=== PATIENT | male | born 1940 | race Caucasian/White ===

== ENCOUNTER → 2017-03-13 | Outpatient (CLI) | payer BC ==
[2014-09-15 07:48] VITALS: BP 150/58
[~2017-03-13] MED LIST: ASPI81TA50 PO; Acetaminophen With Codeine PO; CLOP75TA57 PO; FLUT1DIS3 IH; IPRA0.2S5 NEB; IPRA3AMP; MAGN400O7 PO; OMEP40CA5 PO; PROAIR HFA8.5 GM IH; [UNRECOGNIZED DRUG - CODE]
--- NOTE | 2017-03-13 12:39 | KCIC ---
CT MAXILLOFACIAL WO CONTRAST dated 03/13/2017 10:30 AM Indication: Nasal polyps, drainage, scratchy throat for a couple of years Comparison: None Technique: CT imaging was performed of the[maxillofacial region], multiplanar reconstruction images submitted. One or more of the following individualized dose reduction techniques were utilized for this examination: 1. Automated exposure control 2. Adjustment of the mA and/or kV according to patient size 3. Use of iterative reconstruction technique. Findings: There are no air-fluid levels of the paranasal sinuses. There is patchy ethmoid air cell mucosal thickening, more confluent mucosal thickening and partial opacification of posterior left ethmoid air cell. There is mild mucosal thickening at the floor of the right maxillary sinus, greatest CC thickness up to 5 mm. There may be an associated mucous retention cyst or small polyp. Ostiomeatal units are patent bilaterally. Mastoid air cells are aerated on the right, some minimal density on the left. IMPRESSION: 1. Paranasal sinuses are mostly aerated, patchy minimal ethmoid air cell mucosal thickening and also near the floor of the right maxillary sinus, possibly small mucous retention cyst or polyp near floor of the right maxillary sinus. Electronically signed by: Duke Simms MD (03/13/2017 12:36 PM) [facility]
== END | disposition home or self-care (01) ==
LOC: KCIC CT 10:08
PROVIDERS: ATTEND Otolaryngology
DX: J33.9 Nasal polyp, unspecified (principal); R09.89 Other specified symptoms and signs involving the circulatory and respiratory systems
CPT/HCPCS: 70486

== ENCOUNTER → 2017-06-28 | Outpatient (CLI) | payer BC ==
[2014-09-15 07:48] VITALS: BP 150/58
--- NOTE | 2017-06-28 14:27 | KCIC ---
Three-view left shoulder study Clinical indications: Left shoulder pain for one year. No known injury. FINDINGS: No acute fracture or dislocation or osteolytic process is seen. 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 There is spurring of the inferior edge of the acromial process. These findings may impinge the acromiohumeral space resulting in rotator cuff disease. There is mild chronic erosive change of the lateral aspect of the left humeral head which may be secondary to chronic impingement of the acromiohumeral space. In impression: No acute osseous abnormality. See discussion above. Electronically signed by: Stu Hale MD (06/28/2017 2:23 PM) [facility]
== END | disposition home or self-care (01) ==
LOC: KCIC 13:24
PROVIDERS: ATTEND Family Medicine
DX: M19.012 Primary osteoarthritis, left shoulder (principal)
CPT/HCPCS: 73030

== ENCOUNTER → 2017-11-02 | Outpatient (CLI) | payer BC | END | disposition home or self-care (01) | LOC: KCIC MRI 11:31 | DX: M51.26 Other intervertebral disc displacement, lumbar region (principal); M48.07 Spinal stenosis, lumbosacral region; M41.86 Other forms of scoliosis, lumbar region | CPT/HCPCS: 72148 ==

== ENCOUNTER → 2017-11-16 | Outpatient (CLI) | payer BC ==
[~2017-11-16] MED LIST changes: -ASPI81TA50 PO; -Acetaminophen With Codeine PO; -CLOP75TA57 PO; -FLUT1DIS3 IH; +IOHEXOL 180 MG/ML 10 ML VIAL.; -IPRA0.2S5 NEB; -IPRA3AMP; -MAGN400O7 PO; -OMEP40CA5 PO; -PROAIR HFA8.5 GM IH; -[UNRECOGNIZED DRUG - CODE]; +methylPREDNISolone ACETATE 40 MG/ML VIAL.; +methylPREDNISolone ACETATE 80 MG/ML VIAL.
== END | disposition home or self-care (01) ==
LOC: PNCL 10:11
DX: M51.16 Intervertebral disc disorders with radiculopathy, lumbar region (principal); M48.061 Spinal stenosis, lumbar region without neurogenic claudication; M96.1 Postlaminectomy syndrome, not elsewhere classified; I10 Essential (primary) hypertension; J44.9 Chronic obstructive pulmonary disease, unspecified; N40.0 Benign prostatic hyperplasia without lower urinary tract symptoms; M19.90 Unspecified osteoarthritis, unspecified site; Z87.891 Personal history of nicotine dependence; Z90.49 Acquired absence of other specified parts of digestive tract; Z98.890 Other specified postprocedural states; Z88.2 Allergy status to sulfonamides; Z88.6 Allergy status to analgesic agent; Z79.82 Long term (current) use of aspirin; Z79.899 Other long term (current) drug therapy; K21.9 Gastro-esophageal reflux disease without esophagitis; Z98.52 Vasectomy status; M81.0 Age-related osteoporosis without current pathological fracture; Z82.5 Family history of asthma and other chronic lower respiratory diseases
CPT/HCPCS: 62323; J1030; J1040; Q9965

== ENCOUNTER → 2017-12-04 | Outpatient (CLI) | payer BC | END | disposition home or self-care (01) | LOC: KCIC US 15:11 | DX: N28.1 Cyst of kidney, acquired (principal); N32.9 Bladder disorder, unspecified | CPT/HCPCS: 76770 ==

== ENCOUNTER → 2017-12-13 | Outpatient (CLI) | payer BC ==
[2017-12-13 13:03] LABS: ADD MAN DIFF? NO
[2017-12-13 13:16] LABS: BASO % 1 % (0-3); EOS # 0.1 x10^3/uL (0.0-0.7); EOS % 1 % (0-3); HEMATOCRIT 44.3 % (39.0-53.0); HEMOGLOBIN 15.3 g/dL (13.0-17.5); LYMPH # 1.2 x10^3/uL (1.0-4.8); LYMPH % 17 % (24-48); MEAN CORPUSCULAR HEMOGLOBIN 32 pg (25-35); MEAN CORPUSCULAR HGB CONC 35 g/dL (31-37); MEAN CORPUSCULAR VOLUME 94 fL (79-100); MONO # 0.7 x10^3/uL (0.0-1.1); MONO % 9 % (0-9); NEUT # 5.2 x10^3uL (1.8-7.7); NEUT % 72 % (31-73); PLATELET COUNT 305 x10^3/uL (140-400); RED BLOOD COUNT 4.73 x10^6/uL (4.30-5.70); RED CELL DISTRIBUTION WIDTH 13.8 % (11.5-14.5); WHITE BLOOD COUNT 7.2 x10^3/uL (4.0-11.0)
[2017-12-13 13:22] LABS: ALBUMIN 3.8 g/dL (3.4-5.0); ALBUMIN/GLOBULIN RATIO 1.1 (1.0-1.7); ALK PHOS 109 U/L (46-116); ALT (SGPT) 21 U/L (16-63); ANION GAP 6 (6-14); AST (SGOT) 20 U/L (15-37); BLOOD UREA NITROGEN 11 mg/dL (8-26); BUN/CREATININE RATIO 14 (6-20); CALCIUM 9.1 mg/dL (8.5-10.1); CARBON DIOXIDE 32 mmol/L (21-32); CHLORIDE 97 mmol/L (98-107); CREATININE 0.8 mg/dL (0.7-1.3); GLUCOSE 119 mg/dL (70-99); SODIUM 135 mmol/L (136-145); TOTAL BILIRUBIN 0.8 mg/dL (0.2-1.0); TOTAL PROTEIN 7.4 g/dL (6.4-8.2)
== END | disposition home or self-care (01) ==
LOC: RAD 12:11
DX: R93.41 Abnormal radiologic findings on diagnostic imaging of renal pelvis, ureter, or bladder (principal); I10 Essential (primary) hypertension
CPT/HCPCS: 36415; 80053; 85025; 93005

== ENCOUNTER → 2017-12-15 | Outpatient (CLI) | payer BC ==
[2017-12-15] MEDS: IOHEXOL 300 MG/ML 100ML VIAL. IV (11:33)
== END | disposition home or self-care (01) ==
LOC: KCIC CT 10:25
DX: K59.00 Constipation, unspecified (principal); K80.20 Calculus of gallbladder without cholecystitis without obstruction; N40.0 Benign prostatic hyperplasia without lower urinary tract symptoms; N20.0 Calculus of kidney; M41.86 Other forms of scoliosis, lumbar region; M48.061 Spinal stenosis, lumbar region without neurogenic claudication; M47.896 Other spondylosis, lumbar region; I77.819 Aortic ectasia, unspecified site; K57.30 Diverticulosis of large intestine without perforation or abscess without bleeding; K44.9 Diaphragmatic hernia without obstruction or gangrene
CPT/HCPCS: 74178; Q9967

== ENCOUNTER 2018-01-10 12:12 | Observation (INO) | payer BC ==
[2018-01-10] MEDS: IV RINGERS,LACTATED 1000ML 1,000 ML IV ×2 (07:00→15:38)
[~2018-01-10 12:12] MED LIST changes: -IOHEXOL 180 MG/ML 10 ML VIAL.; +LIDOCAINE 1% PF 2 ML VIAL. ID; +MORPHINE SULFATE 2 MG/ML DISP.SYRIN. IV; +ONDANSETRON PF 4 MG/2 ML VIAL. IV; +PROCHLORPERAZINE 10 MG/2 ML VIAL. IV; +fentaNYL PF VIAL 100 MCG/2 ML VIAL IV; -methylPREDNISolone ACETATE 40 MG/ML VIAL.; -methylPREDNISolone ACETATE 80 MG/ML VIAL.
[2018-01-10] MEDS ORDERED: PROPOFOL 20 ML IV (12:53)
[2018-01-10] MEDS ORDERED: DEXAMETHASONE SOD PHOS 20 MG/5 ML VIAL. (12:53)
[2018-01-10] MEDS ORDERED: LIDOCAINE 2% PF Vial for OR 5 ML VIAL. (12:53)
[2018-01-10] MEDS ORDERED: ONDANSETRON PF 4 MG/2 ML VIAL. (12:53)
[2018-01-10] MEDS ORDERED: fentaNYL PF VIAL 100 MCG/2 ML VIAL (12:53)
[2018-01-10] MEDS: SCOPOLAMINE 1.5MG PATCH. TD (13:33)
[2018-01-10] MEDS: TOTAL VOLUME IV ×2 (14:00→14:52)
[2018-01-10] MEDS: MITOMYCIN IV ×2 (14:00→14:52)
[2018-01-10] MEDS: CIPROFLOXACIN 400MG PREMIX 200 ML IV ×2 (14:30→16:44)
[2018-01-10] MEDS ORDERED: FAMOTIDINE 20 MG/2 ML VIAL (14:40)
[2018-01-10] MEDS ORDERED: ePHEDrine PF IN SALINE 50 MG/5 ML DISP.SYRIN IV (15:03)
[2018-01-10] MEDS ORDERED: SEVOFLURANE 61 TO 120 MINUTES. IH (15:20)
[2018-01-10] MEDS ORDERED: PROCHLORPERAZINE 10 MG/2 ML VIAL. IV (15:45)
[2018-01-10] MEDS ORDERED: ONDANSETRON PF 4 MG/2 ML VIAL. IV (15:45)
[2018-01-10] MEDS ORDERED: 0.9 % SODIUM CHLORIDE 10 ML DISP.SYRIN. IV (15:45)
[2018-01-10] MEDS ORDERED: HYOSCYAMINE 0.125 MG TAB.RAPDIS PO (15:45)
[2018-01-10] MEDS ORDERED: MORPHINE SULFATE 2 MG/ML DISP.SYRIN. IV (15:45)
[2018-01-10] MEDS: fentaNYL PF VIAL 100 MCG/2 ML VIAL IV (16:55)
[2018-01-10] MEDS: ALBUTEROL SULFATE 2.5 MG/3 ML NEBU. NEB (20:04)
[2018-01-10] MEDS: BUDESONIDE 0.5 MG/2 ML NEBU. NEB (20:04)
[2018-01-10] MEDS: TAMSULOSIN 0.4 MG CAP.ER.24H. PO (20:19)
[2018-01-10] MEDS: ATORVASTATIN CALCIUM 20 MG TABLET PO (20:19)
[2018-01-10] MEDS: DOCUSATE SODIUM 100 MG CAPSULE. PO (20:19)
[2018-01-10] MEDS ORDERED: NON FORMULARY ITEM (Fluticasone/Salmeterol (Advair 250-50 Diskus) 1 PUFF) IH (21:00)
[2018-01-10] MEDS: HYDROcodone/APAP 5/325MG 1 TAB TABLET PO (22:20)
[2018-01-11] MEDS: IV RINGERS,LACTATED 1000ML 1,000 ML IV ×2 (01:34→07:31)
[2018-01-11] MEDS: BUDESONIDE 0.5 MG/2 ML NEBU. NEB (06:56)
[2018-01-11] MEDS: ALBUTEROL SULFATE 2.5 MG/3 ML NEBU. NEB ×2 (06:56→11:04)
[2018-01-11] MEDS: hydroCHLOROthiazide 12.5 MG CAPSULE PO (07:59)
[2018-01-11] MEDS: HYDROcodone/APAP 5/325MG 1 TAB TABLET PO (07:59)
[2018-01-11] MEDS: FINASTERIDE 5 MG TABLET. PO (07:59)
[2018-01-11] MEDS: DOCUSATE SODIUM 100 MG CAPSULE. PO (07:59)
== END 2018-01-11 13:40 | disposition other institution (70) ==
LOC: SURG 12:12 → 4 NORTH 16:27
DX: C67.9 Malignant neoplasm of bladder, unspecified (principal); N40.0 Benign prostatic hyperplasia without lower urinary tract symptoms; G83.9 Paralytic syndrome, unspecified
CPT/HCPCS: 51045; 94640; 94760; 97161-GP; G0378; G0379; G8978-CK-GP; G8979-CI-GP; J1100; J2001; J2405; J2704; J3010; J7613; J7626; J9280; S0028

== ENCOUNTER 2018-03-07 12:02 | Day surgery (SDC) | payer BC ==
[~2018-03-07] VITALS: Ht 182.9 cm; Wt 66.2 kg
[~2018-03-07 12:02] MED LIST changes: +ASPI81TA50 PO; +ATOR20TA58 PO; +Acetaminophen With Codeine PO; +CIPROFLOXACIN 400MG PREMIX 200 ML IV ONE; +CLOP75TA57 PO; +FINA5TAB4 PO; +FLUT1DIS3 IH; +HYDR12.53 PO; +HYDROmorphone 2 MG/ML VIAL IV PRN; +IPRA0.2S5 NEB; +IPRA3AMP29; +IV RINGERS,LACTATED 1000ML 1,000 ML IV SCH; -LIDOCAINE 1% PF 2 ML VIAL. ID; +LIDOCAINE 1% PF 2 ML VIAL. ID PRN; +LIDOCAINE 2% JELLY 6ML IN APPLICATOR. ONE; +MAGN400O7 PO; -MORPHINE SULFATE 2 MG/ML DISP.SYRIN. IV; +MORPHINE SULFATE 2 MG/ML VIAL. IV PRN; +NAPR220T70 PO; +OMEP40CA5 PO; -ONDANSETRON PF 4 MG/2 ML VIAL. IV; +ONDANSETRON PF 4 MG/2 ML VIAL. IV PRN; +PROAIR HFA8.5 GM IH; -PROCHLORPERAZINE 10 MG/2 ML VIAL. IV; +PROCHLORPERAZINE 10 MG/2 ML VIAL. IV PRN; +TAMS0.4C2 PO; +[UNRECOGNIZED DRUG - CODE]; -fentaNYL PF VIAL 100 MCG/2 ML VIAL IV; +fentaNYL PF VIAL 100 MCG/2 ML VIAL IV PRN
[2018-03-07] MEDS ORDERED: fentaNYL PF VIAL 100 MCG/2 ML VIAL ONE (13:11)
[2018-03-07] MEDS ORDERED: ROCURONIUM 50 MG/5 ML VIAL. ONE (13:11)
[2018-03-07] MEDS ORDERED: FAMOTIDINE 20 MG/2 ML VIAL ONE (13:12)
[2018-03-07] MEDS ORDERED: PROPOFOL 20 ML IV ONE (13:12)
[2018-03-07] MEDS ORDERED: LIDOCAINE 2% PF Vial for OR 5 ML VIAL. ONE (13:12)
[2018-03-07] MEDS ORDERED: DEXAMETHASONE SOD PHOS 20 MG/5 ML VIAL. ONE (13:12)
[2018-03-07] MEDS ORDERED: ONDANSETRON PF 4 MG/2 ML VIAL. ONE (13:12)
[2018-03-07] MEDS ORDERED: SCOPOLAMINE 1.5MG PATCH. TD ONE (13:15)
[2018-03-07] MEDS ORDERED: NEOSTIGMINE METHYLSULFATE 5 MG/5 ML SYRINGE. ONE (13:45)
[2018-03-07] MEDS ORDERED: GLYCOPYRROLATE 1 MG/5 ML VIAL. ONE (13:46)
--- NOTE | 2018-03-07 13:52 | PDOC4 ---
OPERATIVE NOTE Date: Date: Jan 10, 2018 Pre-Op Diagnosis: bladder tumor Post-Op Diagnosis: same Procedure Performed: turbt Surgeon: Anesthesia Type: ga Blood Loss: 1ml Specimans Obtained: bladder tumor Findings: right lateral wall dystrophic calcifications no distinct tumor Complications: none evident ANICETO TAVARES MD Mar 07, 2018 13:52
--- NOTE | 2018-03-07 13:54 | DISCH ---
DISCHARGE INSTRUCTIONS Condition on Discharge Condition on Discharge: Stable Activity After Discharge Activity Instructions for Disc: Resume previous activity, Activity as tolerated Bathing Instructions: No Tub Bath until see Lifting Instructions after Dis: No heavy lifting, No pulling or pushing, Do not lift >10 pounds Driving Instructions after Dis: Do not drive, Other, see below Weight Bearing Status after Di: Full weight bearing, As tolerated Diet after Discharge Diet after Discharge: Cardiac, Regular Diet Texture: Regular Wound Incision Care Wound/Incision Care: Reinforce dressing PRN, No wound care needed, Other, see below Checks after Discharge Checks after discharge: Check blood press - daily, Check your Temp as needed Contacting the after DC Call your doctor for: Fever greater than 100 Follow-Up Follow up with: dr barclay in 2 weeks Treatment/Equipment after DC Adaptive Equipment Issued: ANICETO Mitchell MD Mar 07, 2018 13:54
[2018-03-07] MEDS ORDERED: SEVOFLURANE 31 TO 60 MINUTES. IH ONE (14:05)
--- NOTE | 2018-03-07 14:09 | OP ---
DATE OF SURGERY: 03/07/2018 PREOPERATIVE DIAGNOSIS: Bladder tumor. POSTOPERATIVE DIAGNOSIS: Bladder tumor. PROCEDURE: Cystoscopy with TURBT. SURGEON: Isa Kline M.D. ANESTHESIA: General. CONDITION: Stable. COMPLICATIONS: None. FINDINGS: Right lateral wall prior resection noted. There is no distinct residual new tumor. He has some dystrophic calcifications, which were resected for a staging to ensure there is no residual microscopic tumor. PROCEDURE IN DETAIL: The patient was taken back to the procedure room and placed under general anesthesia in supine position per the protocol. He was prepped and draped in usual sterile fashion in dorsal lithotomy position. Timeout was performed, SCDs were attached, IV antibiotics were administered. A 24-Maltese continuous flow resectoscope was inserted all the way into the bladder. He had a wide caliber bulbar stricture disease and he also had some meatal stenosis for which I had to dilate with urethral sounds under direct vision. A careful systematic review of the bladder visualized bladder trabeculations, but no stone or tumors. The previous area of resection was noted with some fibrosis and dystrophic calcification. This was resected one more time to ensure there was no residual microscopic tumor. Pinpoint hemostasis was obtained. Bladder was emptied. Uro-Jet was applied to the urethra. The patient was awakened and taken to PACU in stable condition. DISPOSITION: Follow up with me in 2 weeks for pathology results. November discharge home. ISA KLINE MD DR: GILBERT/josefina JOB#: [id number] / [id number]
[2018-03-07 15:30] VITALS: BP 171/83
== END 2018-03-07 15:30 | disposition home or self-care (01) ==
LOC: SURG 12:02
PROVIDERS: ATTEND Urology
DX: N32.89 Other specified disorders of bladder (principal); E78.00 Pure hypercholesterolemia, unspecified; N40.0 Benign prostatic hyperplasia without lower urinary tract symptoms; G83.9 Paralytic syndrome, unspecified; I10 Essential (primary) hypertension; J44.9 Chronic obstructive pulmonary disease, unspecified; K44.9 Diaphragmatic hernia without obstruction or gangrene; K21.9 Gastro-esophageal reflux disease without esophagitis; Z98.52 Vasectomy status; Z98.890 Other specified postprocedural states; Z87.39 Personal history of other diseases of the musculoskeletal system and connective tissue; Z87.891 Personal history of nicotine dependence; Z79.899 Other long term (current) drug therapy; Z79.82 Long term (current) use of aspirin; Z85.51 Personal history of malignant neoplasm of bladder
CPT/HCPCS: 52224; J0744; J1100; J2001; J2405; J2704; J2710; J3010; J3490; S0028; A7015

== ENCOUNTER → 2018-04-05 | Outpatient (CLI) | payer BC ==
[2018-03-07 15:30] VITALS: BP 171/83
[~2018-04-05] MED LIST changes: -CIPROFLOXACIN 400MG PREMIX 200 ML IV ONE; -HYDROmorphone 2 MG/ML VIAL IV PRN; -IV RINGERS,LACTATED 1000ML 1,000 ML IV SCH; -LIDOCAINE 1% PF 2 ML VIAL. ID PRN; -LIDOCAINE 2% JELLY 6ML IN APPLICATOR. ONE; -MORPHINE SULFATE 2 MG/ML VIAL. IV PRN; -ONDANSETRON PF 4 MG/2 ML VIAL. IV PRN; -PROCHLORPERAZINE 10 MG/2 ML VIAL. IV PRN; -fentaNYL PF VIAL 100 MCG/2 ML VIAL IV PRN
--- NOTE | 2018-04-05 12:41 | KCIC ---
MRI Brain without contrast History: Parkinson's disease, gait disorder, unsteady gait for about one year Technique: Multiplanar, multisequential noncontrast MR imaging was performed of the brain. Contrast: None Comparison: None Findings: There is no evidence of recent infarct or cytotoxic edema. Ventricular size is proportionate to the sulcal spaces, mild generalized supratentorial involutional change.There is no significant midline shift, intraaxial mass effect, or focal abnormal extra-axial fluid collection. There is no significant hemosiderin deposition of the brain parenchyma. There is multifocal moderate to severe T2 and FLAIR hyperintense abnormality of the supratentorial white matter bilaterally, also some involvement of the basal ganglia greater on the right and mild signal abnormality of the mariel. There is preservation of the major intracranial flow-voids at the skull base. There is moderate to severe fluid and thickening of the left mastoid air cells. 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 There is patchy [id number] ethmoid air cell mucosal thickening greater on the left. There is small right maxillary sinus mucous retention cyst. The cerebellar tonsils are normal in location. There is no significant abnormality of the pineal gland or pituitary gland. There is preserved marrow signal of the clivus. Impression: 1. There is no evidence of recent infarct or intracranial mass effect. There is multifocal moderate to severe T2 and FLAIR hyperintense signal abnormality of the supratentorial white matter and to lesser degree of the basal ganglia and mariel, nonspecific findings most commonly due to chronic microvascular ischemic disease in a patient of this age. 2. There is moderate to severe fluid and thickening of the left mastoid air cells, uncertain sterility. Electronically signed by: Duke Simms MD (04/05/2018 12:37 PM) [facility]
== END | disposition home or self-care (01) ==
LOC: KCIC MRI 10:57
PROVIDERS: ATTEND Psychiatry & Neurology Neurology with Special Qualifications in Child Neurology
DX: G20 Parkinson's disease (principal); R90.82 White matter disease, unspecified; Z79.899 Other long term (current) drug therapy; Z88.8 Allergy status to other drugs, medicaments and biological substances
CPT/HCPCS: 70551

== ENCOUNTER → 2018-07-23 | Outpatient (CLI) | payer BC ==
[~2018-07-23] MED LIST changes: +ALBU2.5V8 IH; -HYDR12.53 PO; +HYDR12.575 PO; -PROAIR HFA8.5 GM IH
--- NOTE | 2018-07-23 10:05 | KCIC ---
EXAM: Chest, 2 views. HISTORY: Bronchitis. COMPARISON: None. FINDINGS: 2 views of the chest are obtained. There is no infiltrate, pleural effusion or pneumothorax. The heart is normal in size. IMPRESSION: No acute pulmonary finding. Electronically signed by: Jany Renteria MD (07/23/2018 10:00 AM) [place] [id number]
== END | disposition home or self-care (01) ==
LOC: KCIC 09:31
DX: J20.9 Acute bronchitis, unspecified (principal)
CPT/HCPCS: 71046

== ENCOUNTER → 2019-04-15 | Outpatient (CLI) | payer BC ==
--- NOTE | 2019-04-15 21:05 | PAIN ---
DATE OF SERVICE: 04/15/2019 PROGRESS NOTE FOR PAIN CLINIC DIAGNOSES: Lumbar radiculopathy with lumbar degenerative disk disease, lumbar spinal stenosis and post-lumbar laminectomy syndrome. HISTORY OF PRESENT ILLNESS: The patient is a 78-year-old male who returns for followup status post lumbar epidural steroid injection x 1, last seen in 11/2017. The patient reports he did very well initially with about 90% improvement in the low back and bilateral lower extremity pain, but the pain has returned now over the past 6 months or so. The patient reports he has just not gotten back and when he wanted to, but his pain is increasing. He did have a new MRI scan of the lumbar spine on 11/02/2017 showing multilevel degenerative change with L3-L4, L4-L5 and L5-S1 with mild to moderate left foraminal and moderate central canal stenosis, mild right and moderate left foraminal stenosis at L5-S1. The patient reports still significant pain, bilateral lower extremities, posterior gluteus, posterior lateral thigh, posterior calves, worse with walking significant fatigability with walking as well. The patient reports legs are very unstable, at times. The patient reports it does not awaken him from sleep, is much better with sitting or lying down, much worse with walking, standing, changing positions. The patient reports his pain is 7 on a scale of 10 at its worst over the past week, 4 at its least and 5 at its average and is a 5 today. The patient reports no new motor or sensory deficits, no new bowel or bladder incontinence, still significant radicular pain is noted. PHYSICAL EXAMINATION: VITAL SIGNS: The patient's blood pressure is 121/75, pulse 61, respirations 18, temperature is 98.4 degrees Fahrenheit, height is 5 feet 11 inches, and weight is 140 pounds. GENERAL: The patient is awake, alert, oriented, appropriate, very pleasant demeanor. HEENT: Shows normocephalic, atraumatic. Extraocular movements are intact and symmetrical. Oral cavity: Mucous membranes moist and pink. Dentition is intact. NECK: Shows anterior throat supple without palpable lymphadenopathy noted. Swallow reflex symmetrical. CHEST: Shows normal on inspection. Breath sounds clear to auscultation bilaterally. HEART: Shows S1, S2 clear. No murmurs auscultated. ABDOMEN: Soft, nontender, nondistended. No palpable organomegaly is noted. No rebound or guarding demonstrated. BACK: Shows spine grossly in the midline. Normal appearing thoracic kyphosis and lumbar lordotic curvature is slightly flattened with well-healed surgical scarring noted. Lumbar paraspinous muscle shows symmetrical on inspection, with palpation shows some moderate tenderness throughout the upper, middle and lower distribution of paraspinous muscles bilaterally without significant atrophy, hypertrophy, but with significant pain with palpation in the lower lumbar distribution as well. The patient is walking with a walker at all times now. In the lower extremities, motor exam shows approximately 4 on a scale of 5, but equal and symmetrical with dorsiflexion, extension, quadriceps and hamstring flexion. Peripheral pulses are 1+ posterior tibial. No peripheral edema is noted. PLAN: Options were discussed with the patient. The patient's old chart was reviewed as his current medication regimen updated. Current review of systems updated today as well. We will preauthorize the patient for a lumbar epidural steroid injection as he has significant radicular pain in L5-S1 dermatomal distribution bilaterally with the recent MRI scan showing significant stenosis at these levels at L4-L5 and L5-S1, especially disk protrusion. The patient will continue exercising, stretching and strengthening as he is doing on his own in the meantime and also walking as best daily. The patient will be given Medrol Dosepak as well. We will have him return for lumbar epidural steroid injection at L5-S1 level after approval. CORA CARTER MD DR: KAILEY/josefina JOB#: [id number] / [id number]
== END | disposition home or self-care (01) ==
LOC: PNCL 10:01
PROVIDERS: ATTEND Anesthesiology
DX: M51.16 Intervertebral disc disorders with radiculopathy, lumbar region (principal); M48.061 Spinal stenosis, lumbar region without neurogenic claudication; M96.1 Postlaminectomy syndrome, not elsewhere classified
CPT/HCPCS: G0463

== ENCOUNTER → 2019-04-29 | Outpatient (CLI) | payer BC ==
[~2019-04-29] MED LIST changes: +IOHEXOL 180 MG/ML 10 ML VIAL. ONE; +OMEP40CA45 PO; -OMEP40CA5 PO; +methylPREDNISolone ACETATE 40 MG/ML VIAL. ONE; +methylPREDNISolone ACETATE 80 MG/ML VIAL. ONE
--- NOTE | 2019-04-29 11:58 | PAIN ---
DATE OF SERVICE: 04/29/2019 PROGRESS NOTE FOR PAIN CLINIC DIAGNOSES: Lumbar radiculopathy with lumbar degenerative disk disease, lumbar spinal stenosis and lumbar post-laminectomy syndrome. HISTORY OF PRESENT ILLNESS: The patient is a 78-year-old male who returns for followup status post previous lumbar epidural steroid injection and recent preauthorization for additional injections. The patient reports still significant pain in the low back into the bilateral lower extremities, right essentially equal to left and across the low back itself, worse with walking, standing, changing positions. Reports pain is radiating to posterior gluteus, posterior thighs, posterior calves, better at night, sitting or lying down, does not awaken him from sleep. The patient reports his pain is a 4 on a scale of 10 at its worst over the past week, 3 on average, 2 at its least and is a 3 today. The patient reports it is constant, aching pain across the low back and the lower extremities as described without significant change. The patient reports no new motor or sensory deficits, no new bowel or bladder incontinence. PHYSICAL EXAMINATION: VITAL SIGNS: The patient's blood pressure 147/75, pulse 62, respirations are 18, temperature is 97.8 degrees Fahrenheit, height is 5 feet 11 inches, weight is 148 pounds. GENERAL: The patient is awake, alert, oriented, appropriate, very pleasant demeanor. HEENT: Shows normocephalic, atraumatic. Extraocular movements intact and symmetrical. Oral cavity: Mucous membranes moist and pink. Dentition is intact. NECK: Shows anterior throat supple without palpable lymphadenopathy noted. Swallow reflex symmetrical. CHEST: Shows normal on inspection. Breath sounds clear to auscultation bilaterally. HEART: Shows S1, S2 clear. No murmurs auscultated. ABDOMEN: Soft, nontender, nondistended. No palpable organomegaly is noted. No rebound or guarding demonstrated. BACK: Shows spine grossly in the midline. Normal appearing thoracic kyphosis, some minor flattening of lumbar lordotic curvature. Well-healed surgical scar is noted in the lumbar distribution. Paraspinous musculature shows symmetrical on inspection, on palpation shows some moderate tenderness diffusely throughout the upper, middle and lower distribution of paraspinous muscles bilaterally. No tenderness over the spinous processes, sacrum or sacroiliac regions. The patient does show good rotational motion of lumbar spine, both laterally as well as extension and flexion without significant difficulty. EXTREMITIES: The patient's lower extremities show deep tendon reflexes 1+ in the patellar and tendo calcaneus tendons. Motor exam is 4 on a scale of 5, but equal and symmetrical dorsiflexion, extension, quadriceps and hamstring flexion. Peripheral pulses are 1+ posterior tibia. No peripheral edema is noted bilaterally. Options were discussed with the patient. The patient's old chart was reviewed as his current medication regimen updated. Current review of systems updated today as well. We will proceed with a first in this series of lumbar epidural steroid injection today with fluoroscopic guidance. Risks were again discussed including, but not limited to bleeding, infection, possibility of epidural hematoma, subsequent neurological compromise, dural puncture, headaches, spinal cord and/or nerve damage, side effects of steroid medication and poor results regarding pain control. The patient understands and wished to proceed. The patient will return to clinic in approximately 2 weeks for followup. He was counseled on return appointment, activity level and side effects to be aware of. DIAGNOSES: Lumbar radiculopathy with lumbar degenerative disk disease, lumbar spinal stenosis with post-lumbar laminectomy syndrome. PROCEDURE: Lumbar epidural steroid injection, translaminar approach L5-S1 level using C-arm fluoroscopic guidance under sterile prep and drape using local anesthetic. MEDICATION INJECTED: A total of 120 mg of Depo-Medrol plus 10 mL of preservative-free normal saline and 2 mL of contrast. CONDITION AT DISCHARGE: Stable. The patient tolerated the procedure well, had no complications. CORA CARTER MD DR: KAILEY/josefina JOB#: [id number] / [id number]
== END ==
LOC: PNCL 10:14
PROVIDERS: ATTEND Anesthesiology
DX: M51.16 Intervertebral disc disorders with radiculopathy, lumbar region (principal); M48.061 Spinal stenosis, lumbar region without neurogenic claudication; M96.1 Postlaminectomy syndrome, not elsewhere classified
CPT/HCPCS: 62323; J1030; J1040; Q9965

== ENCOUNTER 2019-08-18 22:18 | Emergency (ER) | payer BC ==
[~2019-08-18] VITALS: Ht 182.9 cm; Wt 65.0 kg
[~2019-08-18 22:18] MED LIST changes: -IOHEXOL 180 MG/ML 10 ML VIAL. ONE; -methylPREDNISolone ACETATE 40 MG/ML VIAL. ONE; -methylPREDNISolone ACETATE 80 MG/ML VIAL. ONE
--- NOTE | 2019-08-18 22:49 | PHYS DOC ---
Past Medical History Past Medical History: Cancer, COPD, Hypertension Adult General Chief Complaint Chief Complaint: SHORTNESS OF BREATH HPI HPI Patient is a 78 year old male with history of hypertension, COPD without home oxygen, bladder cancer who presents with complaints of shortness of breath. Patient complaining of productive cough for the last 3-4 days with mucus and yellow sputum and episodes of shortness of breath with exertion and supine position without chest pain, fever and chills, sore throat and earache, headache and myalgia, sick contact. Patient states he took [id number] medication use his home inhaler without improvement of his condition. Review of Systems Review of Systems Constitutional: Denies fever or chills [] Eyes: Denies change in visual acuity, redness, or eye pain [] HENT: Denies nasal congestion or sore throat [] Respiratory: Reports cough and shortness of breath Cardiovascular: No additional information not addressed in HPI [] GI: Denies abdominal pain, nausea, vomiting, bloody stools or diarrhea [] : Denies dysuria or hematuria [] Musculoskeletal: Denies back pain or joint pain [] Integument: Denies rash or skin lesions [] Neurologic: Denies headache, focal weakness or sensory changes [] Endocrine: Denies polyuria or polydipsia [] All other systems were reviewed and found to be within normal limits, except as documented in this note. Current Medications Current Medications Current Medications Medications (Trade) Dose Ordered Sig/Demetrice Start Time Stop Time Status Last Admin Dose Admin Albuterol/ Ipratropium (Duoneb) 3 ml 1X ONCE 08/18/19 23:00 08/18/19 23:01 DC 08/18/19 23:01 3 ML Ceftriaxone Sodium (Rocephin) 1 gm 1X ONCE 08/19/19 00:00 08/19/19 00:01 DC 08/19/19 00:09 1 GM Allergies Allergies Allergies Coded Allergies Type Severity Reaction Last Updated Verified amoxicillin Allergy Intermediate 01/10/18 Yes sulfacetamide Allergy Intermediate 01/10/18 Yes prednisone Adverse Reaction Intermediate can'tsleep 01/10/18 Yes Physical Exam Physical Exam Constitutional: Well developed, well nourished, mild distress, non-toxic appearance, afebrile, O2 sat of 95% room air. [] HENT: Normocephalic, atraumatic, bilateral external ears normal, oropharynx moist, no oral exudates, nose normal. [] Eyes: PERRLA, EOMI, conjunctiva normal, no discharge. [] Neck: Normal range of motion, no tenderness, supple, no stridor. [] Cardiovascular:Heart rate regular rhythm, no murmur [] Lungs & Thorax: Bilateral breath sounds clear to auscultation [] Abdomen: Bowel sounds normal, soft, no tenderness, no masses, no pulsatile masses. [] Skin: Warm, dry, no erythema, no rash. [] Back: No tenderness, no CVA tenderness. [] Extremities: No tenderness, no cyanosis, no clubbing, ROM intact, no edema. [] Neurologic: Alert and oriented X 3, normal motor function, normal sensory function, no focal deficits noted. [] Psychologic: Affect normal, judgement normal, mood normal. [] Current Patient Data Vital Signs Vital Signs Date Time Temp Pulse Resp B/P (MAP) Pulse Ox O2 Delivery O2 Flow Rate FiO2 08/19/19 00:08 66 23 137/65 (89) 95 Room Air 08/18/19 22:30 97.8 97.8 Lab Values Laboratory Tests Test 08/18/19 22:49 08/18/19 22:55 08/18/19 23:06 08/18/19 23:40 White Blood Count 9.9 x10^3/uL (4.0-11.0) Red Blood Count 4.52 x10^6/uL (4.30-5.70) Hemoglobin 14.4 g/dL (13.0-17.5) Hematocrit 42.8 % (39.0-53.0) Mean Corpuscular Volume 95 fL (79-100) Mean Corpuscular Hemoglobin 32 pg (25-35) Mean Corpuscular Hemoglobin Concent 34 g/dL (31-37) Red Cell Distribution Width 13.8 % (11.5-14.5) Platelet Count 270 x10^3/uL (140-400) Neutrophils (%) (Auto) 65 % (31-73) Lymphocytes (%) (Auto) 20 % (24-48) L Monocytes (%) (Auto) 10 % (0-9) H Eosinophils (%) (Auto) 4 % (0-3) H Basophils (%) (Auto) 1 % (0-3) Neutrophils # (Auto) 6.4 x10^3/uL (1.8-7.7) Lymphocytes # (Auto) 1.9 x10^3/uL (1.0-4.8) Monocytes # (Auto) 1.0 x10^3/uL (0.0-1.1) Eosinophils # (Auto) 0.4 x10^3/uL (0.0-0.7) Basophils # (Auto) 0.1 x10^3/uL (0.0-0.2) Prothrombin Time 12.4 SEC (11.7-14.0) Prothrombin Time INR 1.0 (0.8-1.1) Sodium Level 136 mmol/L (136-145) Potassium Level 3.5 mmol/L (3.5-5.1) Chloride Level 97 mmol/L (98-107) L Carbon Dioxide Level 30 mmol/L (21-32) Anion Gap 9 (6-14) Blood Urea Nitrogen 20 mg/dL (8-26) Creatinine 0.9 mg/dL (0.7-1.3) Estimated GFR (Cockcroft-Gault) 81.8 BUN/Creatinine Ratio 22 (6-20) H Glucose Level 137 mg/dL (70-99) H Lactic Acid Level 1.5 mmol/L (0.4-2.0) Calcium Level 8.8 mg/dL (8.5-10.1) Total Bilirubin 0.6 mg/dL (0.2-1.0) Aspartate Amino Transferase (AST) 18 U/L (15-37) Alanine Aminotransferase (ALT) 19 U/L (16-63) Alkaline Phosphatase 105 U/L (46-116) Creatine Kinase 88 U/L (39-308) Troponin I Quantitative < 0.017 ng/mL (0.000-0.055) UG-Sal-G-Type Natriuretic Peptide 48 pg/mL (0-449) Total Protein 6.3 g/dL (6.4-8.2) L Albumin 3.5 g/dL (3.4-5.0) Albumin/Globulin Ratio 1.3 (1.0-1.7) O2 Saturation 94 % (92-99) Arterial Blood pH 7.46 (7.35-7.45) H Arterial Blood pCO2 at Patient Temp 39 mmHg (35-46) Arterial Blood pO2 at Patient Temp 66 mmHg (65-108) Arterial Blood HCO3 27 mmol/L (21-28) Arterial Blood Base Excess 3 mmol/L (-3-3) FiO2 21 Influenza Type A Antigen Negative (NEGATIVE) Influenza Type B Antigen Negative (NEGATIVE) Urine Collection Type Unknown Urine Color Yellow Urine Clarity Clear Urine pH 6.0 Urine Specific [place] 1.020 Urine Protein Negative mg/dL (NEG-TRACE) Urine Glucose (UA) Negative mg/dL (NEG) Urine Ketones (Stick) Negative mg/dL (NEG) Urine Blood Negative (NEG) Urine Nitrite Negative (NEG) Urine Bilirubin Negative (NEG) Urine Urobilinogen Dipstick 1.0 mg/dL (0.2 mg/dL) Urine Leukocyte Esterase Negative (NEG) Urine RBC 0 /HPF (0-2) Urine WBC Occ /HPF (0-4) Urine Squamous Epithelial Cells Few /LPF Urine Bacteria 0 /HPF (0-FEW) Urine Mucus Mod /LPF Laboratory Tests 08/18/19 22:49 Laboratory Tests 08/18/19 22:49 EKG EKG EKG interpreted by me. EKG at 2233 showed normal sinus rhythm at rate of 73, left axis deviation, incomplete right bundle-branch block, poor R wave practicing in anteroseptal leads, no acute ST and T-wave elevation.[] Radiology/Procedures Radiology/Procedures [facility] [address] [place] [address] IMAGING REPORT Signed PATIENT: JAYLON RODRIGUEZ ACCOUNT: [id number] : 1940 LOCATION: ER AGE: 78 SEX: M EXAM STATUS: REG ER ORD. PHYSICIAN: GABINO PERES MD REASON: shortness of breath/EKG AND LABS @ 2300 PROCEDURE: CHEST PA & LATERAL CHEST PA LATERAL Technique: PA and lateral views of the chest were obtained. Clinical History: Dyspnea Comparison: July 23, 2018. Findings: The heart and pulmonary vasculature appear within normal limits. The lungs are hyperinflated. There is linear reticular opacities in the lung bases. Impression: 1. Hyperinflation likely secondary to COPD. 2. Mild basal infiltrates likely discoid atelectasis.. Electronically signed by: Juan F Scott III, MD (08/18/2019 11:59 PM) [id number] DICTATED and SIGNED BY: JUAN F SCOTT III, MD DATE: 08/18/19 4055 Course & Med Decision Making Course & Med Decision Making Pertinent Labs and Imaging studies reviewed. (See chart for details) Evaluation of patient in ER showed 78-year-old male patient with history of COPD without home oxygen and complaining of cough and shortness of breath for a few days. Patient had O2 sat of 95% at ER without hypertension or tachycardia or fever. Labs and chest x-ray was unremarkable. Patient felt better with nebulizer treatment and IV fluid. Patient treated with Rocephin and prescription for doxycycline and Tessalon was given and patient was advised to follow-up with his primary care physician. Dragon Disclaimer Dragon Disclaimer This electronic medical record was generated, in whole or in part, using a voice recognition dictation system. Departure Departure Impression: Primary Impression: COPD exacerbation Additional Impression: History of bladder cancer Disposition: HOME, SELF-CARE (at 2349) Condition: IMPROVED Referrals: TANA MATHEW MD (PCP) Patient Instructions: Chronic Obstructive Pulmonary Disease Exacerbation, Cough, Adult Additional Instructions: Drink plenty of liquids Follow-up with your primary care physician in 3-5 days Return to ER if not getting better Thank you for visiting [facility]. We appreciate you trusting us with your care. If any additional problems come up don't hesitate to return to visit us. Please follow up with your primary care provider so they can plan additional care if needed and know about the problem that you had. If symptoms worsen come back to the Emergency Department. Any concerning symptoms that start such as chest pain, shortness of air, weakness or numbness on one side of the body, running high fevers or any other concerning symptoms return to the ER. Scripts Benzonatate (TESSALON PERLE) 100 Mg Capsule 1 CAP PO TID for cough, #21 CAP Prov: GABINO PERES MD 08/18/19 Doxycycline Hyclate (DOXYCYCLINE HYCLATE) 100 Mg Capsule 1 CAP PO BID, #14 CAP Prov: GABINO PERES MD 08/18/19 Problem Qualifiers GABINO PERES MD Aug 18, 2019 22:49
[2019-08-18 22:53] LABS: BASE EXCESS ABG 3 mmol/L (-3-3); HCO3 ABG 27 mmol/L (21-28); PCO2 ABG 39 mmHg (35-46); PO2 ABG 66 mmHg (65-108); SAT O2 ABG 94 % (92-99)
[2019-08-18 22:57] LABS: BASO # 0.1 x10^3/uL (0.0-0.2); BASO % 1 % (0-3); EOS # 0.4 x10^3/uL (0.0-0.7); EOS % 4 % (0-3); HEMATOCRIT 42.8 % (39.0-53.0); HEMOGLOBIN 14.4 g/dL (13.0-17.5); LYMPH # 1.9 x10^3/uL (1.0-4.8); LYMPH % 20 % (24-48); MEAN CORPUSCULAR HEMOGLOBIN 32 pg (25-35); MEAN CORPUSCULAR HGB CONC 34 g/dL (31-37); MEAN CORPUSCULAR VOLUME 95 fL (79-100); MONO % 10 % (0-9); NEUT # 6.4 x10^3/uL (1.8-7.7); NEUT % 65 % (31-73); PLATELET COUNT 270 x10^3/uL (140-400); RED BLOOD COUNT 4.52 x10^6/uL (4.30-5.70); RED CELL DISTRIBUTION WIDTH 13.8 % (11.5-14.5); WHITE BLOOD COUNT 9.9 x10^3/uL (4.0-11.0)
[2019-08-18 22:59] LABS: FIO2 ABG 21
[2019-08-18] MEDS ORDERED: IPRATRPIUM/ALBUTEROL 0.5/2.5MG 3 ML NEBU. NEB ONE (23:00)
[2019-08-18 23:05] LABS: PROTHROMBIN TIME PATIENT 12.4 SEC (11.7-14.0)
[2019-08-18 23:06] LABS: CALCIUM 8.8 mg/dL (8.5-10.1); CREATININE 0.9 mg/dL (0.7-1.3); GFR 81.8; POTASSIUM 3.5 mmol/L (3.5-5.1)
[2019-08-18 23:12] LABS: ALBUMIN 3.5 g/dL (3.4-5.0); ALBUMIN/GLOBULIN RATIO 1.3 (1.0-1.7); TOTAL BILIRUBIN 0.6 mg/dL (0.2-1.0); TOTAL PROTEIN 6.3 g/dL (6.4-8.2)
[2019-08-18 23:26] LABS: INFLUENZA A PATIENT NEGATIVE (NEGATIVE); INFLUENZA B PATIENT NEGATIVE (NEGATIVE)
[2019-08-18 23:50] LABS: BILIRUBIN,URINE NEGATIVE (NEG); CLARITY,URINE CLEAR; COLOR,URINE YELLOW; NITRITE,URINE NEGATIVE (NEG); PROTEIN,URINE NEGATIVE (NEG-TRACE)
[2019-08-18] MEDS ORDERED: BENZ100C PO (23:51)
[2019-08-18] MEDS ORDERED: DOXY100C2 PO (23:51)
[2019-08-18 23:55] LABS: BACTERIA,URINE 0 /HPF (0-FEW); RBC,URINE 0 /HPF (0-2); SQUAMOUS EPITHELIAL CELL,UR FEW /LPF; WBC,URINE OCC /HPF (0-4)
[2019-08-19] MEDS ORDERED: cefTRIAXone IV Push 1 GM VIAL. IVP ONE
--- NOTE | 2019-08-19 00:02 | RAD ---
CHEST PA LATERAL Technique: PA and lateral views of the chest were obtained. Clinical History: Dyspnea Comparison: July 23, 2018. Findings: The heart and pulmonary vasculature appear within normal limits. The lungs are hyperinflated. There is linear reticular opacities in the lung bases. Impression: 1. Hyperinflation likely secondary to COPD. 2. Mild basal infiltrates likely discoid atelectasis.. Electronically signed by: Baldemar Wilson III, MD (08/18/2019 11:59 PM) [id number]
[2019-08-19 00:08] VITALS: BP 137/65
--- NOTE | 2019-08-19 11:00 | EKG ---
[facility] [address] [place] [address] Test Date: 2019-08-18 Test Time: 22:33:36 Pat Name: JAYLON RODRIGUEZ Department: Room: Gender: M Nurse Manager: : 1940 Requested By: GABINO PERES Order Number: [id number] Reading MD: Measurements Intervals [place] Rate: 73 P: 48 [place]: 158 QRS: -32 QRSD: 92 T: 34 QT: 364 QTc: 404 Interpretive Statements SINUS RHYTHM ABNORMAL LEFT AXIS DEVIATION INCOMPLETE RIGHT BUNDLE BRANCH BLOCK QRS(T) CONTOUR ABNORMALITY CONSIDER INFERIOR INFARCT ABNORMAL ECG RI6.01 No previous ECG available for comparison
== END 2019-08-19 00:20 | disposition home or self-care (01) ==
LOC: ER 22:18
DX: J44.1 Chronic obstructive pulmonary disease with (acute) exacerbation (principal); I10 Essential (primary) hypertension; Z85.51 Personal history of malignant neoplasm of bladder; Z88.1 Allergy status to other antibiotic agents; Z88.2 Allergy status to sulfonamides; Z88.5 Allergy status to narcotic agent
CPT/HCPCS: 36415; 36600; 71046; 80053; 81001; 82550; 82805; 83605; 83880; 84484; 85025; 85610; 87040; 87804; 93005; 94640; 96374; 99285; J0696; J7620

== ENCOUNTER 2020-03-13 01:03 | Emergency (ER) | payer BC ==
[~2020-03-13] VITALS: Ht 182.9 cm; Wt 68.1 kg
[~2020-03-13 01:03] MED LIST changes: +BENZ100C PO; +DOXY100C2 PO
--- NOTE | 2020-03-13 02:25 | PHYS DOC ---
Past Medical History Past Medical History: Cancer, COPD, Hypertension Additional Past Medical Histor: bph, malignant neoplasm of urinary bladder, parkinsons Smoking Status: Former Smoker Alcohol Use: None General Adult EDM: Chief Complaint: MECHANICAL FALL HPI: HPI: Patient is a 79 year old male who presents with a left elbow pain. Patient had a mechanical fall 3 days ago and he landed on the left elbow. Patient did not hit his head or have loss of consciousness. Patient has moderate at rest but severe in intensity pain with range of motion of the left elbow. Pain is throbbing and radiates up and down from the elbow. Patient denies any focal weakness or numbness distally. Review of Systems: Review of Systems: Constitutional: Denies fever or chills. [] Eyes: Denies change in visual acuity. [] HENT: Denies nasal congestion or sore throat. [] Respiratory: Denies cough or shortness of breath. [] Cardiovascular: Denies chest pain or edema. [] GI: Denies abdominal pain, nausea, vomiting, bloody stools or diarrhea. [] : Denies dysuria. [] Musculoskeletal: Denies back pain but has left elbow pain Integument: Denies rash. [] Neurologic: Denies headache, focal weakness or sensory changes. [] Endocrine: Denies polyuria or polydipsia. [] Lymphatic: Denies swollen glands. [] Psychiatric: Denies depression or anxiety. [] Heart Score: Risk Factors: Risk Factors: DM, Current or recent (<one month) smoker, HTN, HLP, family history of CAD, obesity. Risk Scores: Score 0 - 3: 2.5% MACE over next 6 weeks - Discharge Home Score 4 - 6: 20.3% MACE over next 6 weeks - Admit for Clinical Observation Score 7 - 10: 72.7% MACE over next 6 weeks - Early Invasive Strategies Allergies: Allergies: Allergies Coded Allergies Type Severity Reaction Last Updated Verified amoxicillin Allergy Intermediate 01/10/18 Yes sulfacetamide Allergy Intermediate 01/10/18 Yes prednisone Adverse Reaction Intermediate can'tsleep 01/10/18 Yes Physical Exam: PE: Constitutional: Well developed, well nourished, no acute distress, non-toxic appearance. [] HENT: Normocephalic, atraumatic, bilateral external ears normal, no trismus nose normal. [] Eyes: PERRLA, EOMI, conjunctiva normal, no discharge. [] Neck: Normal range of motion, no tenderness, supple, no stridor. [] Cardiovascular:Heart rate regular rhythm, peripheral pulses intact, cap refill brisk Lungs & Thorax: Bilateral breath sounds clear, no respiratory distress Abdomen: Nondistended Skin: Warm, dry, no erythema, no rash. [] Healed over skin tears left elbow Back: No tenderness, no CVA tenderness. [] Extremities: Tenderness and swelling to the left elbow with limited range of motion. Neurologic: Alert and oriented X 3, normal motor function, normal sensory function, no focal deficits noted. [] Psychologic: Affect normal, judgement normal, mood normal. [] Current Patient Data: Vital Signs: Vital Signs Date Time Temp Pulse Resp B/P (MAP) Pulse Ox O2 Delivery O2 Flow Rate FiO2 03/13/20 01:10 97.3 89 14 187/87 (120) 94 Room Air 97.3 EKG: EKG: [] Radiology/Procedures: Radiology/Procedures: [][facility] [address] [place] [address] IMAGING REPORT Signed PATIENT: JAYLON RODRIGUEZ ACCOUNT: [id number] : 1940 LOCATION: ER AGE: 79 SEX: M EXAM STATUS: REG ER ORD. PHYSICIAN: THA POSADA MD REASON: fall, LEFT ELBOW INJURY, difficulty getting humerus views due to elbow pain PROCEDURE: HUMERUS LEFT Study: 1. CR FOREARM LEFT 2. CR HUMERUS LEFT 3. CR ELBOW LEFT 2V Indication: Fall. Comparison: None. Findings: Humerus: No fracture is identified. No traumatic malalignment. Degenerative changes at the shoulder girdle. Osteopenia. Elbow: Scattered osteophyte formation. Mineralization adjacent to the coronoid process appears degenerative. No displaced fracture is identified. No traumatic malalignment. Lucency projecting along the anterior margin of the distal humerus but this is not definitively on account of fat pad elevation. The posterior fat pad is not elevated. Forearm: In the setting of osteopenia the radius and ulna are grossly intact. No acute fracture or malalignment involving the partially assessed wrist and hand. Impression: Left humerus, elbow and forearm: 1. Noting diffuse osteopenia, no acute fracture seen throughout the imaged left upper extremity. There is the suggestion of soft tissue injury at the elbow but this would be better assessed clinically. If there is ongoing concern for a fracture consider follow-up radiographs such as in 2 weeks. 2. No traumatic malalignment at the shoulder, elbow or wrist. 3. Degenerative changes are greatest at the elbow. Electronically signed by: CRISTAL WOODWARD MD (03/13/2020 2:37 AM) [id number] DICTATED and SIGNED BY: CRISTAL WOODWARD MD DATE: 03/13/20 0237 Course & Med Decision Making: Course & Med Decision Making Pertinent Labs and Imaging studies reviewed. (See chart for details) [] Splint note: Long-arm posterior splint Ortho-Glass applied by nursing with a sling, reexamined post application by me, neurovascularly intact, cap refill less than 3 seconds, peripheral pulses intact 79-year-old male with a fall and possible left elbow fracture. X-rays negative by radiologist but I think there may be a hairline crack. Patient placed in a sling and a splint. Dragon Disclaimer: [email or web address] Disclaimer: This electronic medical record was generated, in whole or in part, using a voice recognition dictation system. Departure Departure Impression: Primary Impression: Left elbow contusion Disposition: 01 HOME, SELF-CARE Condition: STABLE Referrals: TANA MATHEW MD (PCP) JUAN F COHEN MD 2-3 DAYS Patient Instructions: Arm Sling Use-Brief, Cast or Splint Care, Elbow Contusion Additional Instructions: EMERGENCY DEPARTMENT GENERAL DISCHARGE INSTRUCTIONS THANK YOU for coming to [facility] Emergency Department (ED) to day and trusting us with your care. We trust that you had a positive experience in our Emergency Department. If you wish to speak to the department Management you can contact the supervisor stitching department at . YOUR FOLLOW UP INSTRUCTIONS ARE FOLLOWS: Do you have a private doctor? If you do not have a private doctor, please ask for a resource list of physicians or clinics that may be able to assist you with follow up care. The Emergency Physician has interpreted your x-rays. The X-ray specialist will also review them. If there is a change in the findings you will be notified in 48 hours when at all possible. A lab test or lab culture may have been done, your results will be reviewed and you will be notified if you need a change in treatment. ADDITIONAL INSTRUCTIONS AND INFORMATION Your care today has been supervised by a physician who is specially trained in emergency care. Many problems require more than one evaluation for a complete diagnosis and treatment. We recommend that you schedule your follow up appointment as recommended to ensure complete treatment of your illness or injury. If you are unable to obtain follow up care and continue to have a problem, or if your condition worsens we recommend that you return to the ED. We are not able to safely determine your condition over the phone nor are we able to give sound medical advice over the phone. For these safety reasons, if you call for medical advice we will ask you to come to the ED for further evaluation If you have any questions regarding these discharge instructions please call the ED at . SAFETY INFORMATION In the interest of safety, wellness, and injury prevention; we encourage you to wear your seatbelt, if you smoke; quit smoking, and we encourage your family to use protective helmet for bicycling and other sporting events that present an increased risk for head injury. IF YOUR SYMPTOMS WORSEN OR NEW SYMPTOMS DEVELOP, OR YOU HAVE CONCERNS ABOUT YOUR CONDITION; OR IF YOUR CONDITION WORSENS WHILE YOU ARE WAITING FOR YOUR FOLLOW UP APPOINTMENT; EITHER CONTACT YOUR PRIMARY CARE DOCTOR, THE PHYSICIAN WHOSE NAME AND NUMBER YOU WERE GIVEN, OR RETURN TO THE ED IMMEDIATELY. Scripts Hydrocodone/Apap 5-325 (NORCO 5-325 TABLET) 1 Each Tablet 1 EACH PO PRN Q6HRS PRN for PAIN, #12 as needed for pain Prov: THA POSADA MD 03/13/20 Justicifation of Admission Dx: Justifications for Admission: Justification of Admission Dx: N/A THA POSADA MD Mar 13, 2020 02:25
--- NOTE | 2020-03-13 02:40 | RAD ---
Study: 1. CR FOREARM LEFT 2. CR HUMERUS LEFT 3. CR ELBOW LEFT 2V Indication: Fall. Comparison: None. Findings: Humerus: No fracture is identified. No traumatic malalignment. Degenerative changes at the shoulder girdle. Osteopenia. Elbow: Scattered osteophyte formation. Mineralization adjacent to the coronoid process appears degenerative. No displaced fracture is identified. No traumatic malalignment. Lucency projecting along the anterior margin of the distal humerus but this is not definitively on account of fat pad elevation. The posterior fat pad is not elevated. Forearm: In the setting of osteopenia the radius and ulna are grossly intact. No acute fracture or malalignment involving the partially assessed wrist and hand. Impression: Left humerus, elbow and forearm: 1. Noting diffuse osteopenia, no acute fracture seen throughout the imaged left upper extremity. There is the suggestion of soft tissue injury at the elbow but this would be better assessed clinically. If there is ongoing concern for a fracture consider follow-up radiographs such as in 2 weeks. 2. No traumatic malalignment at the shoulder, elbow or wrist. 3. Degenerative changes are greatest at the elbow. Electronically signed by: CRISTAL WOODWARD MD (03/13/2020 2:37 AM) [id number]
[2020-03-13] MEDS ORDERED: HYDR-3164 PO (02:50)
[2020-03-13] MEDS ORDERED: HYDROcodone/APAP 5/325MG 1 TAB TABLET PO ONE (03:00)
[2020-03-13 03:54] VITALS: BP 123/78
== END 2020-03-13 03:40 | disposition home or self-care (01) ==
LOC: ER 01:03
DX: S50.02XA Contusion of left elbow, initial encounter (principal); M25.512 Pain in left shoulder; M79.632 Pain in left forearm; R60.0 Localized edema; J44.9 Chronic obstructive pulmonary disease, unspecified; I10 Essential (primary) hypertension; Z85.9 Personal history of malignant neoplasm, unspecified; Z85.51 Personal history of malignant neoplasm of bladder; Z87.891 Personal history of nicotine dependence; Z88.1 Allergy status to other antibiotic agents; Z88.2 Allergy status to sulfonamides; Z88.8 Allergy status to other drugs, medicaments and biological substances; W18.39XA Other fall on same level, initial encounter; Y93.89 Activity, other specified; Y92.89 Other specified places as the place of occurrence of the external cause; Y99.8 Other external cause status
CPT/HCPCS: 29105; 73060; 73070; 73090; 99284; A4565

== ENCOUNTER → 2020-07-21 | Outpatient (CLI) | payer MEDICARE ==
[~2020-07-21] MED LIST changes: +ASPI-630 PO; +CARB1TAB22 PO; +HYDR-3164 PO; +MULT-690 PO; -OMEP40CA45 PO; +OMEP40CA7 PO
--- NOTE | 2020-07-21 15:19 | KCIC ---
EXAM: Left shoulder, 3 views. HISTORY: Pain. COMPARISON: None. FINDINGS: 3 views of the left shoulder obtained. There is no fracture, dislocation or subluxation. Th ere is mild acromioclavicular and glenohumeral spurring. There is degenerative change involving the v isualized cervical spine, not formally assessed on this exam. IMPRESSION: Mild left shoulder osteoarthritis. No acute osseous finding. Electronically signed by: Jany Renteria MD (07/21/2020 3:16 PM) [id number]
== END ==
LOC: KCIC 14:48
PROVIDERS: ATTEND Family Medicine
DX: M19.012 Primary osteoarthritis, left shoulder (principal); G89.29 Other chronic pain
CPT/HCPCS: 73030

== ENCOUNTER 2020-10-02 08:52 | Day surgery (SDC) | payer MEDICARE ==
[~2020-10-02 08:52] MED LIST changes: +CIPROFLOXACIN 0.3% OPHTH SOLUTION 5ML BOTTLE. OS ONE; +HYDROmorphone 2 MG/ML VIAL IVP PRN; +IV RINGERS,LACTATED 1000ML 1,000 ML IV SCH; +LIDOCAINE 2% JELLY 6ML IN APPLICATOR. OS ONE; +MORPHINE SULFATE 2 MG/ML VIAL. IVP PRN; +OMEP40CA45 PO; -OMEP40CA7 PO; +PROCHLORPERAZINE 10 MG/2 ML VIAL. IVP PRN; +PROPARACAINE 0.5% OPHTH SOLUTION 15ML BOTTLE. OS ONE; +fentaNYL PF VIAL 100 MCG/2 ML VIAL IVP PRN
[2020-10-02] MEDS: PHENYLEPHRINE 10% OPHTH SOLUTION 5ML BOTTLE. OS SCH ×3 (09:25→09:38)
[2020-10-02] MEDS: CYCLOPENTOLATE 2% OPHTH SOLUTION 2ML BOTTLE. OS SCH ×3 (09:25→09:38)
[2020-10-02] MEDS ORDERED: NEO/POLYMYX/DEXAMETH OPHTH OINTMENT 3.5GM TUBE. ONE (10:19)
[2020-10-02] MEDS ORDERED: LIDOCAINE 1%/PHENYLEPH 1.5% PF OPHTH 1 ML VIAL. ONE (10:19)
[2020-10-02] MEDS ORDERED: CHONDROIT-SOD-HYALURONATE KIT. ONE (10:20)
[2020-10-02] MEDS ORDERED: CHONDROITIN-SOD-HYALURONATE 0.5 ML DISP.SYRIN. ONE (10:20)
[2020-10-02] MEDS ORDERED: BALANCED SALT IRRIG OPHTH SOLN 15 ML BOTTLE. IO ONE (11:00)
--- NOTE | 2020-10-02 12:02 | OP ---
DATE OF SURGERY: 10/02/2020 PREOPERATIVE DIAGNOSIS: Cataract of the left eye. PROCEDURE: Phacoemulsification with posterior chamber intraocular lens implantation of the left eye. INDICATION: Painless progressive visual loss with visually significant cataract. SURGEON: Juan Luis Torres MD ANESTHESIA: Topical with monitored anesthesia care. DESCRIPTION OF PROCEDURE: The left eye was prepped with Betadine in the usual sterile fashion and draped. A paracentesis was performed followed by instillation of preservative-free phenylephrine admixed with lidocaine and balanced salt solution. A temporal clear corneal incision was made followed by instillation of Viscoat. A capsulorrhexis was performed followed by hydrodissection. The phacoemulsification handpiece was used to remove the nucleus in a modified stop and chop fashion. The I/A handpiece was used to remove the remainder of the cortex. Viscoelastic was injected in the capsular bag. An [place] model [id number] with a power of 17.0 diopters was placed into the capsular bag. Balanced salt solution was used to hydrate the corneal wounds and the viscoelastic evacuated with the I/A handpiece. Once no leak was noted, Maxitrol was placed on the eye and the eye shielded and the patient was sent to the recovery room uneventfully. JUAN LUIS TORRES MD DR: ISABEL/nts JOB#: [id number] / [id number]
[2020-10-02 12:20] VITALS: BP 185/77
== END 2020-10-02 12:21 | disposition home or self-care (01) ==
LOC: SURG 08:52
PROVIDERS: ATTEND Ophthalmology
DX: H25.89 Other age-related cataract (principal); E78.00 Pure hypercholesterolemia, unspecified; I10 Essential (primary) hypertension; J44.9 Chronic obstructive pulmonary disease, unspecified; K21.9 Gastro-esophageal reflux disease without esophagitis; M19.90 Unspecified osteoarthritis, unspecified site; Z90.49 Acquired absence of other specified parts of digestive tract; Z98.890 Other specified postprocedural states; Z79.899 Other long term (current) drug therapy; Z79.82 Long term (current) use of aspirin; Z87.891 Personal history of nicotine dependence; Z72.89 Other problems related to lifestyle; Z88.1 Allergy status to other antibiotic agents; Z88.8 Allergy status to other drugs, medicaments and biological substances; Z20.822 Contact with and (suspected) exposure to COVID-19
CPT/HCPCS: 66984; 87426; C9803; J0171; J0690; J1580; J3490; U0003; V2632

== ENCOUNTER 2020-10-09 09:01 | Day surgery (SDC) | payer MEDICARE ==
[~2020-10-09] VITALS: Ht 182.9 cm; Wt 68.1 kg
[~2020-10-09 09:01] MED LIST changes: +CIPROFLOXACIN 0.3% OPHTH SOLUTION 5ML BOTTLE. OD ONE; -CIPROFLOXACIN 0.3% OPHTH SOLUTION 5ML BOTTLE. OS ONE; +LIDOCAINE 2% JELLY 6ML IN APPLICATOR. OD ONE; -LIDOCAINE 2% JELLY 6ML IN APPLICATOR. OS ONE; +PROPARACAINE 0.5% OPHTH SOLUTION 15ML BOTTLE. OD ONE; -PROPARACAINE 0.5% OPHTH SOLUTION 15ML BOTTLE. OS ONE
[2020-10-09] MEDS ORDERED: NEO/POLYMYX/DEXAMETH OPHTH OINTMENT 3.5GM TUBE. ONE (09:04)
[2020-10-09] MEDS ORDERED: CHONDROIT-SOD-HYALURONATE KIT. ONE (09:05)
[2020-10-09] MEDS ORDERED: LIDOCAINE 1%/PHENYLEPH 1.5% PF OPHTH 1 ML VIAL. ONE (09:05)
[2020-10-09] MEDS ORDERED: CHONDROITIN-SOD-HYALURONATE 0.5 ML DISP.SYRIN. ONE (09:05)
[2020-10-09] MEDS: PHENYLEPHRINE 10% OPHTH SOLUTION 5ML BOTTLE. OD SCH ×3 (10:00→10:10)
[2020-10-09] MEDS: CYCLOPENTOLATE 2% OPHTH SOLUTION 2ML BOTTLE. OD SCH ×3 (10:00→10:10)
[2020-10-09 11:32] VITALS: BP 162/72
--- NOTE | 2020-10-09 11:56 | OP ---
DATE OF SURGERY: 10/09/2020 PREOPERATIVE DIAGNOSIS: Cataract of the right eye. PROCEDURE: Phacoemulsification with posterior chamber intraocular lens implantation of the right eye. SURGEON: Juan Luis Torres MD ANESTHESIA: Topical with monitored anesthesia care. DESCRIPTION OF PROCEDURE: The right eye was prepped with Betadine in the usual sterile fashion and draped. A paracentesis was performed followed by instillation of preservative-free phenylephrine admixed with lidocaine and balanced salt solution. A temporal clear corneal incision was made followed by instillation of Viscoat. A capsulorrhexis was then performed followed by hydrodissection. The phacoemulsification handpiece was used to remove the nucleus in a modified stop and chop fashion. The I/A handpiece was used to remove the cortex. Viscoelastic was injected in the capsular bag and an [place] model [id number] with a power of 17.5 diopters was placed into the capsular bag. Balanced salt solution was used to hydrate the corneal wounds and the viscoelastic evacuated with the I/A handpiece. Once no leak was noted, Maxitrol was placed on the eye and the eye shielded and the patient was sent to the recovery room uneventfully. JUAN LUIS TORRES MD DR: ISABEL/josefina JOB#: [id number] / [id number]
== END 2020-10-09 12:04 | disposition home or self-care (01) ==
LOC: SURG 09:01
PROVIDERS: ATTEND Ophthalmology
DX: H25.89 Other age-related cataract (principal); M19.90 Unspecified osteoarthritis, unspecified site; I10 Essential (primary) hypertension; E78.00 Pure hypercholesterolemia, unspecified; J44.9 Chronic obstructive pulmonary disease, unspecified; K21.9 Gastro-esophageal reflux disease without esophagitis; M81.0 Age-related osteoporosis without current pathological fracture; Z90.49 Acquired absence of other specified parts of digestive tract; Z98.890 Other specified postprocedural states; Z79.899 Other long term (current) drug therapy; Z79.82 Long term (current) use of aspirin; Z87.891 Personal history of nicotine dependence; Z88.1 Allergy status to other antibiotic agents; Z88.8 Allergy status to other drugs, medicaments and biological substances
CPT/HCPCS: 66984; C1780; J0171; J0690; J1580; J3490

== ENCOUNTER 2020-12-31 10:32 | Emergency (ER) | payer MEDICARE ==
[~2020-12-31] VITALS: Ht 182.9 cm; Wt 70.5 kg
[~2020-12-31 10:32] MED LIST changes: -CIPROFLOXACIN 0.3% OPHTH SOLUTION 5ML BOTTLE. OD ONE; -HYDROmorphone 2 MG/ML VIAL IVP PRN; -IV RINGERS,LACTATED 1000ML 1,000 ML IV SCH; -LIDOCAINE 2% JELLY 6ML IN APPLICATOR. OD ONE; -MORPHINE SULFATE 2 MG/ML VIAL. IVP PRN; -OMEP40CA45 PO; +OMEP40CA7 PO; -PROCHLORPERAZINE 10 MG/2 ML VIAL. IVP PRN; -PROPARACAINE 0.5% OPHTH SOLUTION 15ML BOTTLE. OD ONE; -fentaNYL PF VIAL 100 MCG/2 ML VIAL IVP PRN
[2020-12-31 10:42] VITALS: BP 175/85
--- NOTE | 2020-12-31 10:50 | PHYS DOC ---
Past Medical History Past Medical History: Cancer, COPD, Hypertension Additional Past Medical Histor: bph, malignant neoplasm of urinary bladder, parkinsons Smoking Status: Former Smoker Alcohol Use: None General Adult EDM: Chief Complaint: LACERATION/AVULSION HPI: HPI: Patient is a 80 year old male who presents to the ED today with left forearm skin tears after falling today. Patient states he tripped on his walker and fell. He has history of Parkinson's with a shuffling gait. He is on aspirin 81 mg daily. Denies hitting his head on the ground. Denies any loss of consciousness. Review of Systems: Review of Systems: Constitutional: Denies fever or chills. [] Eyes: Denies change in visual acuity. [] HENT: Denies nasal congestion or sore throat. [] Respiratory: Denies cough or shortness of breath. [] Cardiovascular: Denies chest pain or edema. [] GI: Denies abdominal pain, nausea, vomiting, bloody stools or diarrhea. [] : Denies dysuria. [] Musculoskeletal: Denies back pain or joint pain. [] Integument: Reports left forearm skin tear Neurologic: Denies headache, focal weakness or sensory changes. [] Psychiatric: Denies depression or anxiety. [] Heart Score: C/O Chest Pain: N/A Risk Factors: Risk Factors: DM, Current or recent (<one month) smoker, HTN, HLP, family history of CAD, obesity. Risk Scores: Score 0 - 3: 2.5% MACE over next 6 weeks - Discharge Home Score 4 - 6: 20.3% MACE over next 6 weeks - Admit for Clinical Observation Score 7 - 10: 72.7% MACE over next 6 weeks - Early Invasive Strategies Allergies: Allergies: Allergies Coded Allergies Type Severity Reaction Last Updated Verified amoxicillin Allergy Intermediate 10/09/20 Yes sulfacetamide Allergy Intermediate 10/09/20 Yes prednisone Adverse Reaction Intermediate can'tsleep 10/09/20 Yes Physical Exam: PE: Constitutional: Thin appearing patient, appears older than the stated age, no acute distress, non-toxic appearance. [] HENT: Normocephalic, atraumatic, bilateral external ears normal, oropharynx mo ist, no oral exudates, nose normal. [] Eyes: PERRLA, EOMI, conjunctiva normal, no discharge. [] Neck: Normal range of motion, no tenderness, supple, no stridor. [] Cardiovascular:Heart rate regular rhythm, no murmur [] Lungs & Thorax: Bilateral breath sounds clear to auscultation [] Abdomen: Bowel sounds normal, soft, no tenderness, no masses, no pulsatile masses. [] Skin: Left forearm with 3 skin tears, one is 7 x 5 cm on the distal end of the forearm, the other one is 4 x 2 cm mid forearm, the other one is 5 x 0.3 cm just below the elbow. Range of motion is intact to the left upper extremity, adequate radial, medial, ulnar sensation to the left hand. +2 left radial pulse. Cap refill less than 2 seconds to left fingers hematoma also noted on the left forearm Back: No tenderness, no CVA tenderness. [] Extremities: No tenderness, no cyanosis, no clubbing, ROM intact, no edema. [] Neurologic: Alert and oriented X 3, normal motor function, normal sensory function, no focal deficits noted. Cranial nerves II through XII intact Psychologic: Affect normal, judgement normal, mood normal. [] EKG: EKG: [] Radiology/Procedures: Radiology/Procedures: []PROCEDURE: FOREARM LEFT 2 view study of the left forearm Clinical indications: Left forearm laceration after a fall. FINDINGS: No acute fracture or dislocation or lytic process is seen. No radiopaque foreign body is evident. There is a soft tissue nodule seen proximally posteriorly and laterally measuring 14 mm and may represent a soft tissue hematoma. IMPRESSION: No acute osseous abnormality. 14 mm soft tissue nodule which could represent a soft tissue hematoma. Clinical correlation is recommended. Electronically signed by: Tyron Hale MD (12/31/2020 11:55 AM) [id number] DICTATED and SIGNED BY: TYRON HALE MD DATE: 12/31/20 [id number] 0 Course & Med Decision Making: Course & Med Decision Making Pertinent Labs and Imaging studies reviewed. (See chart for details) This is a 80-year-old male patient presenting to the ED today with skin tears to the left forearm after falling. The area to be cleaned Neosporin applied to the area and the skin approximated and held with Steri-Strips. Patient will be provided instructions to follow-up with the wound clinic. Left forearm x-rays interpreted by radiologist are negative for any acute findings. Dragon Disclaimer: Dragon Disclaimer: This electronic medical record was generated, in whole or in part, using a voice recognition dictation system. Departure Departure Impression: Primary Impression: Skin tear of forearm without complication Qualified Codes: S51.812A - Laceration without foreign body of left forearm, initial encounter Additional Impression: Fall Qualified Codes: W19.XXXA - Unspecified fall, initial encounter Disposition: HOME / SELF CARE / HOMELESS Condition: STABLE Referrals: TANA MATHEW MD (PCP) follow up in one week HUGH HOLM MD Call his office today and set up a follow up appointment Patient Instructions: Skin Tear Care, [id number] Additional Instructions: You have skin tears to the left forearm, please contact the provided doctor at the wound clinic in follow-up. Apply Neosporin to the area once or twice a day. You can shower and wash the area. REGINA ROE ETL CONSULTANT Dec 31, 2020 10:50
[2020-12-31] MEDS ORDERED: DIPH,PERTUSS(ACELL),TET VAC/PF 0.5 ML SYRINGE. VAX IM ONE (11:00)
[2020-12-31] MEDS ORDERED: NEOMY/BACITR/POLYMYXIN OINT PACKET. TP ONE (11:30)
--- NOTE | 2020-12-31 11:57 | RAD ---
2 view study of the left forearm Clinical indications: Left forearm laceration after a fall. FINDINGS: No acute fracture or dislocation or lytic process is seen. No radiopaque foreign body is ev ident. There is a soft tissue nodule seen proximally posteriorly and laterally measuring 14 mm and ma y represent a soft tissue hematoma. IMPRESSION: No acute osseous abnormality. 14 mm soft tissue nodule which could represent a soft tissu e hematoma. Clinical correlation is recommended. Electronically signed by: Stu Hale MD (12/31/2020 11:55 AM) [id number]
== END 2020-12-31 12:18 | disposition home or self-care (01) ==
LOC: ER 10:32
DX: S51.812A Laceration without foreign body of left forearm, initial encounter (principal); I10 Essential (primary) hypertension; J44.9 Chronic obstructive pulmonary disease, unspecified; Z88.1 Allergy status to other antibiotic agents; Z88.8 Allergy status to other drugs, medicaments and biological substances; W01.0XXA Fall on same level from slipping, tripping and stumbling without subsequent striking against object, initial encounter; Y93.89 Activity, other specified; Y92.89 Other specified places as the place of occurrence of the external cause; Y99.8 Other external cause status
CPT/HCPCS: 73090; 90471; 90715; 99284

== ENCOUNTER 2021-08-20 13:31 | Inpatient (IN) | payer MEDICARE ==
[~2021-08-20] VITALS: Ht 182.9 cm; Wt 59.0 kg
[~2021-08-20 13:31] MED LIST changes: -DOXY100C2 PO; +DOXY100C3 PO
--- NOTE | 2021-08-20 14:08 | PHYS DOC ---
Past Medical History Past Medical History: Cancer, COPD, Hypertension Additional Past Medical Histor: bph, malignant neoplasm of urinary bladder, parkinsons, PVD Past Surgical History: No Surgical History Smoking Status: Former Smoker Alcohol Use: None Drug Use: None General Adult EDM: Chief Complaint: SHORTNESS OF BREATH HPI: HPI: Patient is a 80 year old male here with multiple complaints. He was brought in by EMS for generalized weakness, generalized abdominal discomfort, nausea, vomiting, diarrhea. He does report some dyspnea, but he is always dyspneic, he reports no acute changes in this, he attributes this to his COPD. He has a chronic and unchanged cough, denies hemoptysis or sputum changes. He denies fevers or chills. He does report feeling some mild dizziness. No syncope, f all, head injury, no loss of consciousness. No focal weakness, numbness or tingling reported. He reports that he has a history of bladder cancer, and he sees a urologist in [place]. He denies any acute urinary changes, though he has chronic urinary urgency. He has been able to pass urine without any pain or gross hematuria reported. He denies fevers or chills. He denies chest pain or pressure. Review of Systems: Review of Systems: Constitutional: Denies fever or chills. He reports generalized malaise and fatigue. Eyes: Denies change in visual acuity. [] HENT: Denies nasal congestion or sore throat. [] Respiratory: Chronic and unchanged cough, denies sputum production hemoptysis. Chronic and unchanged dyspnea.] Cardiovascular: Denies chest pain or edema. [] GI: Generalized abdominal pain, nausea, vomiting, diarrhea. Denies melena, hematochezia or hematemesis. : Denies dysuria or gross hematuria. Chronic urinary urgency. Musculoskeletal: No focal joint pain or swelling. He reports generalized myalgias. Integument: Denies rash. [] Neurologic: Denies headache, focal weakness or sensory changes. He denies dizziness, vertigo or syncope. No fall or head injury reported. Generalized weakness. Psychiatric: Denies depression or anxiety. [] Heart Score: C/O Chest Pain: No Risk Factors: Risk Factors: DM, Current or recent (<one month) smoker, HTN, HLP, family history of CAD, obesity. Risk Scores: Score 0 - 3: 2.5% MACE over next 6 weeks - Discharge Home Score 4 - 6: 20.3% MACE over next 6 weeks - Admit for Clinical Observation Score 7 - 10: 72.7% MACE over next 6 weeks - Early Invasive Strategies Allergies: Allergies: Allergies Coded Allergies Type Severity Reaction Last Updated Verified amoxicillin Allergy Intermediate 10/09/20 Yes sulfacetamide Allergy Intermediate 10/09/20 Yes prednisone Adverse Reaction Intermediate can'tsleep 10/09/20 Yes Physical Exam: PE: Constitutional: Frail, chronically ill-appearing, mildly acutely ill-appearing, nontoxic, sitting up, resting comfortably on the ED gurney. HENT: Normocephalic, atraumatic, oropharynx is patent and clear, mucous membranes are dry. Eyes: Mild conjunctival pallor, no scleral icterus, no discharge. [] Neck: Normal range of motion, no tenderness, supple, no stridor. Trachea midline, no JVD Cardiovascular:Heart rate regular rhythm, +2 radial and +2 posterior tibial pulses bilaterally Lungs & Thorax: Lungs are clear to auscultation bilaterally, minimally diminished in bilateral bases. No rales, rhonchi or wheezes. No tachypnea. No stridor. No evidence of cyanosis or distress Abdomen: Abdomen is soft, nondistended, bowel sounds present but slightly hypoactive, no palpable pulsatile mass, I am unable to elicit any tenderness to palpation on exam. No CVA tenderness. No flank abdominal ecchymoses noted. No palpable organomegaly Skin: Warm, dry, no erythema, no rash. Poor skin turgor. No jaundice. Back: No tenderness, no CVA tenderness. [] Extremities: No tenderness, no cyanosis, no clubbing, ROM intact, no edema. No calf tenderness. Neurologic: He is awake, alert, oriented x3, no facial asymmetry, moves all 4 extremities equally, sensation is grossly intact, no limb ataxia, speech is clear and fluent, generalized but nonfocal and symmetric weakness demonstrated Psychologic: Affect is flat. He is cooperative. [] Current Patient Data: Vital Signs: Vital Signs Date Time Temp Pulse Resp B/P (MAP) Pulse Ox O2 Delivery O2 Flow Rate FiO2 08/20/21 13:45 98.0 77 21 127/58 (81) 94 Room Air 98.0 EKG: EKG: EKG is interpreted at 1406 Rhythm sinus Rate is 69 bpm marked artifact [place] likely left No obvious STEMI Radiology/Procedures: Radiology/Procedures: IMAGING REPORT Signed PATIENT: JAYLON RODRIGUEZ ACCOUNT: [id number] : 1940 LOCATION: ER AGE: 80 SEX: M EXAM STATUS: REG ER ORD. PHYSICIAN: FATIMAH VÁSQUEZ DO REASON: cough PROCEDURE: PORTABLE CHEST 1V AP chest. HISTORY: Cough AP view was taken of the chest. Lungs are free of infiltrates. Heart is normal in size. There is no effusion. IMPRESSION: 1. No acute chest disease. Electronically signed by: Paul Zamora MD (08/20/2021 3:15 PM) [id number] DICTATED and SIGNED BY: PAUL ZAMORA MD DATE: 08/20/21 [id number] 0 IMAGING REPORT Signed PATIENT: JAYLON RODRIGUEZ ACCOUNT: [id number] : 1940 LOCATION: ER AGE: 80 SEX: M EXAM STATUS: REG ER ORD. PHYSICIAN: FATIMAH VÁSQUEZ DO REASON: chest pain, dyspnea, abdominal pain, n/v/diarrhea;OMNI 300,75ML PROCEDURE: CT CHEST ABD PELVIS W/CONTRAST Exam: CT of chest, abdomen and pelvis with contrast INDICATION: Chest pain, dyspnea, abdominal pain TECHNIQUE: Sequential axial images through the chest, abdomen and pelvis obtained following the administration of 75 mL of Isovue-370 IV contrast. Sagittal and coronal reformatted images were reconstructed from the axial data and reviewed. Exposure: One or more of the following in the visualized dose reduction techniques were utilized for this examination: 1. Automated exposure control 2. Adjustment of the MA and/or KV according to patient size 3. Use of iterative of reconstructive technique Comparisons: 12/15/2017 FINDINGS: Visual is portions of the thyroid are unremarkable. No enlarged mediastinal lymph nodes are identified. Heart size is normal. No pericardial effusion. Mild coronary artery calcium lesions. Thoracic aorta has a normal course and caliber. Pulmonary artery is not enlarged. Airways are patent. Mild bronchial wall thickening is noted. Mild centrilobular emphysematous change noted probably at the upper lungs. No pneumothorax. No pleural effusion. Liver, spleen, pancreas, gallbladder and adrenals are unremarkable. No perinephric inflammation or hydronephrosis. No renal or ureteral calculi are identified. Bladder is partially distended and appears thin-walled. Prostate is not enlarged. Small right inguinal hernia which contains a short segment of small bowel. Mild distention of loops of small bowel in the right lower quadrant. Remainder large and small bowel are unremarkable. Appendix is nonvisualized. No free intra- abdominal air or fluid. Abdominal aorta has a normal course and caliber. Abdominal vasculature is paten t. No enlarged intra-abdominal lymph nodes are identified. No suspicious osseous lesions or acute fractures. Mild compression fracture of the T9 vertebral body. IMPRESSION: 1. Mild bronchial wall thickening, correlate for bronchitis. 2. Small right inguinal hernia containing short segment of small bowel. Mild distention of small bowel loops in the right lower quadrant, difficult to exclude partial or developing obstruction. 3. Mild compression fracture of the T9 vertebral body, age indeterminate, gloria elate with point tenderness. Electronically signed by: Alisha Chandler MD (08/20/2021 5:39 PM) [facility] DICTATED and SIGNED BY: ALISHA CHANDLER MD DATE: 08/20/21 [id number] 0 Course & Med Decision Making: Course & Med Decision Making Pertinent Labs and Imaging studies reviewed. (See chart for details) Patient is given IV fluids. He has not vomited or demonstrated diarrhea here. He has been afebrile. He demonstrates no evidence of hypoxia or respiratory distress. Imaging studies are unremarkable for any acute life-threatening pathology. The patient still demonstrates generalized, nonfocal weakness. He is unable to ambulate steadily or without assistance. I have discussed all of the findings, differential diagnosis and plan of care with the patient. He agrees to stay for admission and hospitalization. He is Dr. Mathew's patient, but Dr. Mathew is on vacation and Dr. Jones is taking call for him, I informed Dr. Jones of the admission, he accepts. The patient will be admitted in stable condition Mira Disclaimer: Mira Disclaimer: This electronic medical record was generated, in whole or in part, using a voice recognition dictation system. Departure Departure Impression: Primary Impression: Nausea vomiting and diarrhea Additional Impressions: Dehydration Generalized weakness History of bladder cancer Disposition: ADMITTED INPATIENT Admitting Physician: Duke Jones Condition: STABLE Referrals: TANA MATHEW MD (PCP) FATIMAH VÁSQUEZ DO Aug 20, 2021 14:08
[2021-08-20] MEDS ORDERED: ONDANSETRON PF 4 MG/2 ML VIAL. IVP ONE (14:15)
[2021-08-20] MEDS ORDERED: fentaNYL PF VIAL 100 MCG/2 ML VIAL IVP ONE (14:15)
[2021-08-20] MEDS ORDERED: IV NORMAL SALINE 1000ML BAG 1,000 ML IV ONE ×2 (14:15→19:00)
[2021-08-20 14:49] LABS: BASO % 0 % (0-3); EOS % 0 % (0-3); HEMATOCRIT 46.4 % (39.0-53.0); HEMOGLOBIN 15.8 g/dL (13.0-17.5); LYMPH # 0.2 x10^3/uL (1.0-4.8); LYMPH % 1 % (24-48); MEAN CORPUSCULAR HEMOGLOBIN 32 pg (25-35); MEAN CORPUSCULAR HGB CONC 34 g/dL (31-37); MEAN CORPUSCULAR VOLUME 95 fL (79-100); MONO # 0.6 x10^3/uL (0.0-1.1); MONO % 4 % (0-9); NEUT # 12.7 x10^3/uL (1.8-7.7); NEUT % 94 % (31-73); PLATELET COUNT 344 x10^3/uL (140-400); RED BLOOD COUNT 4.91 x10^6/uL (4.30-5.70); RED CELL DISTRIBUTION WIDTH 13.7 % (11.5-14.5); WHITE BLOOD COUNT 13.4 x10^3/uL (4.0-11.0)
--- NOTE | 2021-08-20 15:17 | RAD ---
AP chest. HISTORY: Cough AP view was taken of the chest. Lungs are free of infiltrates. Heart is normal in size. There is no e ffusion. IMPRESSION: 1. No acute chest disease. Electronically signed by: Paul Zamora MD (08/20/2021 3:15 PM) [id number]
[2021-08-20 15:38] LABS: INFLUENZA A PATIENT NEGATIVE (NEGATIVE); INFLUENZA B PATIENT NEGATIVE (NEGATIVE)
[2021-08-20 15:44] LABS: CALCIUM 8.5 mg/dL (8.5-10.1); CREATININE 1.1 mg/dL (0.7-1.3); GFR 64.6; POTASSIUM 3.7 mmol/L (3.5-5.1)
[2021-08-20 15:57] LABS: ALBUMIN 3.6 g/dL (3.4-5.0); ALBUMIN/GLOBULIN RATIO 1.1 (1.0-1.7); TOTAL BILIRUBIN 0.7 mg/dL (0.2-1.0)
[2021-08-20 17:06] LABS: BILIRUBIN,URINE NEGATIVE (NEG); CLARITY,URINE CLEAR; COLOR,URINE YELLOW; NITRITE,URINE NEGATIVE (NEG); PH,URINE 6.5 (<5.0-8.0); PROTEIN,URINE NEGATIVE (NEG-TRACE)
[2021-08-20 17:08] LABS: % BANDS 2 % (0-9); % BASOS 1 % (0-3); % LYMPHS 1 % (24-48); % MONOS 5 % (0-10); % SEGS 91 % (35-66)
[2021-08-20 17:09] LABS: PLT ESTIMATE ADEQUATE (ADEQUATE)
[2021-08-20] MEDS ORDERED: IOHEXOL 300 MG/ML 100ML VIAL. IV ONE (17:15)
[2021-08-20] MEDS ORDERED: CONTRAST GIVEN. MC PRN (17:15)
[2021-08-20 17:25] LABS: BACTERIA,URINE FEW /HPF (0-FEW); RBC,URINE 0 /HPF (0-2); WBC,URINE OCC /HPF (0-4)
--- NOTE | 2021-08-20 17:42 | RAD ---
Exam: CT of chest, abdomen and pelvis with contrast INDICATION: Chest pain, dyspnea, abdominal pain TECHNIQUE: Sequential axial images through the chest, abdomen and pelvis obtained following the admin istration of 75 mL of Isovue-370 IV contrast. Sagittal and coronal reformatted images were reconstruc belle from the axial data and reviewed. Exposure: One or more of the following in the visualized dose reduction techniques were utilized for this examination: 1. Automated exposure control 2. Adjustment of the MA and/or KV according to patient size 3. Use of iterative of reconstructive technique Comparisons: 12/15/2017 FINDINGS: Visual is portions of the thyroid are unremarkable. No enlarged mediastinal lymph nodes are identifie d. Heart size is normal. No pericardial effusion. Mild coronary artery calcium lesions. Thoracic aorta h as a normal course and caliber. Pulmonary artery is not enlarged. Airways are patent. Mild bronchial wall thickening is noted. Mild centrilobular emphysematous change noted probably at the upper lungs. No pneumothorax. No pleural effusion. Liver, spleen, pancreas, gallbladder and adrenals are unremarkable. No perinephric inflammation or hydronephrosis. No renal or ureteral calculi are identified. Bladder is partially distended and appears thin-walled. Prostate is not enlarged. Small right inguinal hernia which contains a short segment of small bowel. Mild distention of loops o f small bowel in the right lower quadrant. Remainder large and small bowel are unremarkable. Appendix is nonvisualized. No free intra-abdominal air or fluid. Abdominal aorta has a normal course and caliber. Abdominal vasculature is patent. No enlarged intra-abdominal lymph nodes are identified. No suspicious osseous lesions or acute fractures. Mild compression fracture of the T9 vertebral body. IMPRESSION: 1. Mild bronchial wall thickening, correlate for bronchitis. 2. Small right inguinal hernia containing short segment of small bowel. Mild distention of small bow el loops in the right lower quadrant, difficult to exclude partial or developing obstruction. 3. Mild compression fracture of the T9 vertebral body, age indeterminate, correlate with point tende rness. Electronically signed by: Alisha Calderon MD (08/20/2021 5:39 PM) [facility]
[2021-08-20] MEDS ORDERED: ONDANSETRON PF 4 MG/2 ML VIAL. IVP PRN (19:00)
[2021-08-20] MEDS ORDERED: IPRATRPIUM/ALBUTEROL 0.5/2.5MG 3 ML NEBU. INH PRN (21:30)
[2021-08-20] MEDS ORDERED: ALBUTEROL SULFATE 2.5 MG/3 ML NEBU. INH PRN (21:30)
[2021-08-20] MEDS: CARBIDOPA/LEVODOPA 25/100MG TABLET PO SCH (22:27)
[2021-08-20] MEDS: ATORVASTATIN CALCIUM 20 MG TABLET PO SCH (22:27)
[2021-08-20] MEDS: TAMSULOSIN 0.4 MG CAP.ER.24H. PO SCH (22:27)
[2021-08-20 22:45] VITALS: BP 148/60
--- NOTE | 2021-08-21 01:45 | EKG ---
[facility] [address] [place] [address] Test Date: 2021-08-20 Test Time: 14:04:40 Pat Name: JAYLON RODRIGUEZ Department: Room: 538 1 Gender: M Database Designer: : 1940 Requested By: FATIMAH VÁSQUEZ Order Number: [id number] Reading MD: Remi Morris Measurements Intervals [place] Rate: 69 P: MT: QRS: -60 QRSD: 86 T: 46 QT: 380 QTc: 409 Interpretive Statements SINUS RHYTHM PACS ABNORMAL LEFT AXIS DEVIATION LEFT ANTERIOR FASCICULAR BLOCK Electronically Signed On 08-23-2021 12:21:09 RIP SAWYER by Remi Morris
[2021-08-21] MEDS: ALBUTEROL SULFATE 8GM INHALER. INH PRN ×2 (02:32→06:26)
[2021-08-21 04:18] VITALS: BP 131/45
[2021-08-21 07:00] VITALS: BP 129/57
[2021-08-21] MEDS: BUDESONIDE 0.5 MG/2 ML NEBU. NEB SCH ×2 (07:13→21:51)
[2021-08-21] MEDS ORDERED: ALBUTEROL SULFATE 2.5 MG/3 ML NEBU. NEB SCH (08:00)
[2021-08-21] MEDS: MULTIVITAMIN with MINERAL TABLET. PO SCH (09:00)
[2021-08-21] MEDS: ASPIRIN CHEWABLE 81 MG TABLET. PO SCH (09:15)
[2021-08-21] MEDS: FINASTERIDE 5 MG TABLET. PO SCH (09:15)
[2021-08-21] MEDS: hydroCHLOROthiazide 12.5 MG CAPSULE PO SCH (09:15)
[2021-08-21] MEDS: CARBIDOPA/LEVODOPA 25/100MG TABLET PO SCH ×2 (09:15→20:16)
[2021-08-21] MEDS: ALBUTEROL SULFATE 8GM INHALER. INH SCH ×4 (09:22→20:21)
[2021-08-21] MEDS: IV NORMAL SALINE 1000ML BAG 1,000 ML IV SCH ×2 (10:25→23:35)
[2021-08-21 11:00] VITALS: BP 131/50
--- NOTE | 2021-08-21 11:01 | HP ---
DATE OF SERVICE: 08/21/2021 ADMIT DATE: 08/20/2021 CHIEF COMPLAINT AND HISTORY OF PRESENT ILLNESS: This 80-year-old male presented to the Emergency Room by EMS with generalized weakness, inability to move around his house. He had had generalized abdominal discomfort, nausea, vomiting, and diarrhea. He reports some cough and dyspnea, but this is no different than usual. He denies any hematemesis, melena, etc. with this. He has just been gotten progressively weaker and unable to do self-care. He does live with his as he was unable to handle him due to the weakness. He has followed through [facility] here in [facility] for bladder cancer. He was thus admitted. PAST MEDICAL HISTORY: Remarkable for the bladder cancer, COPD, hypertension, Parkinson's disease, and peripheral vascular disease. PAST SURGICAL HISTORY: Unremarkable. MEDICATIONS: Brought with the patient, listed on the computer have been addressed. ALLERGIES: HE IS ALLERGIC TO AMOXICILLIN, PREDNISONE, SULFACETAMIDE. SOCIAL HISTORY: He is a former smoker, nondrinker, does not use drugs. Lives at home with his . FAMILY HISTORY: Noncontributory. REVIEW OF SYSTEMS: As mentioned above. PHYSICAL EXAMINATION: GENERAL: He is chronically ill-appearing white male in no acute distress. He is awake and alert. VITAL SIGNS: Stable. He is afebrile. HEAD, EYES, EARS, NOSE AND THROAT: Unremarkable. NECK: Supple, without adenopathy or thyromegaly. CHEST: Reveals decreased breath sounds, but clear. HEART: Regular rate and rhythm without S3, S4 or murmur. ABDOMEN: Soft with no significant tenderness. No organomegaly or masses appreciated. EXTREMITIES: Without cyanosis, clubbing, or edema. NEUROLOGIC: He is intact. LABORATORY DATA: Initial lab is remarkable for him being COVID and influenza negative. Urine does not show any evidence of urinary tract infection. Chemistry panel was pretty much within normal limits. White count is 13,400 with a left shift. IMAGING: Chest x-ray shows no acute disease and the chest, abdomen and pelvis CT shows some mild bronchial wall thickening, possible bronchitis, a small right inguinal hernia containing a short segment of small bowel with mild distention of small bowel loops in the right lower quadrant, difficult to exclude a partial or developing obstruction and age indeterminate mild compression fracture at T9. IMPRESSION: 1. Nausea, vomiting, diarrhea with profound weakness, inability to do self care. 2. Chronic obstructive pulmonary disease. 3. Bladder cancer. PLAN: Hydration therapy to evaluate. We will follow closely and repeat KUB if there is any further evidence of small-bowel obstruction type process. DONNIE DR: Alina TID: [id number]
[2021-08-21 15:00] VITALS: BP 147/55
[2021-08-21 19:00] VITALS: BP 137/58
[2021-08-21] MEDS: TAMSULOSIN 0.4 MG CAP.ER.24H. PO SCH (20:16)
[2021-08-21] MEDS: ATORVASTATIN CALCIUM 20 MG TABLET PO SCH (20:16)
[2021-08-21] MEDS: ACETAMINOPHEN 325 MG TABLET. PO PRN (20:17)
[2021-08-21 23:00] VITALS: BP 111/45
[2021-08-22 03:00] VITALS: BP 132/55
[2021-08-22] MEDS: ACETAMINOPHEN 325 MG TABLET. PO PRN ×2 (03:34→20:25)
[2021-08-22 07:00] VITALS: BP 106/33
[2021-08-22] MEDS: BUDESONIDE 0.5 MG/2 ML NEBU. NEB SCH ×2 (07:22→20:23)
[2021-08-22] MEDS: MULTIVITAMIN with MINERAL TABLET. PO SCH (08:41)
[2021-08-22] MEDS: FINASTERIDE 5 MG TABLET. PO SCH (08:42)
[2021-08-22] MEDS: CARBIDOPA/LEVODOPA 25/100MG TABLET PO SCH ×2 (08:42→20:26)
[2021-08-22] MEDS: ASPIRIN CHEWABLE 81 MG TABLET. PO SCH (08:42)
[2021-08-22] MEDS: ALBUTEROL SULFATE 8GM INHALER. INH SCH ×4 (08:42→19:49)
[2021-08-22] MEDS: hydroCHLOROthiazide 12.5 MG CAPSULE PO SCH (08:42)
[2021-08-22] MEDS: IV NORMAL SALINE 1000ML BAG 1,000 ML IV SCH (10:29)
[2021-08-22 10:47] VITALS: BP 122/44
[2021-08-22] MEDS: AZITHROMYCIN 500 MG in IV NORMAL SALINE 250ML 250 ML IV SCH (10:56)
[2021-08-22] MEDS: cefTRIAXone IV Push 1 GM VIAL. IVP SCH (10:58)
[2021-08-22 15:00] VITALS: BP 135/53
--- NOTE | 2021-08-22 17:43 | PDOC2 ---
CONSULT Date of Consult Date of Consult DATE: 08/22/21 TIME: 17:36 Reason for Consult Reason for Consult: Episodes of bradycardia. Referring Physician Referring Physician: Dr. Jones Identification/Chief Complaint Chief Complaint Generalized weakness and abdominal pain Source Source: Chart review, Patient History of Present Illness Reason for Visit: The patient is a 70-year-old male who was admitted through the emergency room w ith episodes of increasing general weakness, abdominal pain and nausea vomiting and diarrhea. He also reported mild dyspnea on exertion which he attributed to his baseline COPD. Patient's initial work-up showed a CT scan of the chest, abdomen and pelvis that showed mild bronchial wall thickening and a small right inguinal hernia. His EKG showed a sinus rhythm with PACs but no acute ischemic changes. Initial sodium was 139 potassium 3.7 creatinine of 1.1 and troponin of 9. The patient has a history of hypertension, hyperlipidemia, COPD and bladder cancer. He is feeling somewhat better today but is still not back to baseline. We've been asked to see the patient due to episodes of bradycardia with patient dropping his heart rate to the low 40s. During these episodes he remains in a sinus rhythm. Past Medical History Cardiovascular: HTN, Hyperlipidemia, Other (Peripheral vascular disease) Pulmonary: COPD CENTRAL NERVOUS SYSTEM: Other (Parkinson's disease.) Heme/Onc: Cancer Past Surgical History Past Surgical History: No pertinent history Social History Quit ALCOHOL: none Current Problem List Problem List Problems Medical Problems: (1) Dehydration Status: Acute (2) Generalized weakness Status: Acute (3) History of bladder cancer Status: Acute (4) Nausea vomiting and diarrhea Status: Acute Current Medications Current Medications Current Medications Sodium Chloride 1,000 ml @ 1,000 mls/hr 1X ONCE IV Last administered on 08/20/21at 14:41; Start 08/20/21 at 14:15; Stop 08/20/21 at 15:14; Status DC Ondansetron HCl (Zofran) 4 mg 1X ONCE IVP Last administered on 08/20/21at 14:41; Start 08/20/21 at 14:15; Stop 08/20/21 at 14:21; Status DC Fentanyl Citrate (Fentanyl 2ml Vial) 50 mcg 1X ONCE IVP Last administered on 08/20/21at 14:41; Start 08/20/21 at 14:15; Stop 08/20/21 at 14:21; Status DC Iohexol (Omnipaque 300 Mg/ml) 75 ml 1X ONCE IV ; Start 08/20/21 at 17:15; Stop 08/20/21 at 17:16; Status DC Info (CONTRAST GIVEN -- Rx MONITORING) 1 each PRN DAILY PRN MC SEE COMMENTS; Start 08/20/21 at 17:15; Stop 08/22/21 at 17:14; Status DC Ondansetron HCl (Zofran) 4 mg PRN Q8HRS PRN IVP NAUSEA/VOMITING Last administered on 08/21/21at 06:12; Start 08/20/21 at 19:00; Stop 08/21/21 at 18:59; Status DC Sodium Chloride 1,000 ml @ 100 mls/hr 1X ONCE IV Last administered on 08/20/21at 19:27; Start 08/20/21 at 19:00; Stop 08/21/21 at 04:59; Status DC Acetaminophen (Tylenol) 650 mg PRN Q4HRS PRN PO pain or fever Last administered on 08/22/21at 03:34; Start 08/20/21 at 19:00 Aspirin (Aspirin Chewable) 81 mg DAILY08 PO Last administered on 08/22/21at 08:42; Start 08/21/21 at 08:00 Atorvastatin Calcium (Lipitor) 20 mg QHS PO Last administered on 08/21/21at 20:16; Start 08/20/21 at 22:00 Carbidopa/Levodopa (Sinemet 25/100) 1 tab BID PO Last administered on 08/22/21at 08:42; Start 08/20/21 at 22:00 Finasteride (Proscar) 5 mg DAILY PO Last administered on 08/22/21at 08:42; Start 08/21/21 at 09:00 Hydrochlorothiazide (Microzide) 12.5 mg DAILY PO Last administered on 08/22/21at 08:42; Start 08/21/21 at 09:00 Albuterol/ Ipratropium (Duoneb) 3 ml Q4HRS PRN INH Resp distress; Start 08/20/21 at 21:30; Status UNV Tamsulosin HCl (Flomax) 0.4 mg QHS PO Last administered on 08/21/21at 20:16; Start 08/20/21 at 22:00 Budesonide (Pulmicort) 0.5 mg RTBID NEB Last administered on 08/22/21at 07:22; Start 08/21/21 at 08:00 Multivitamins (Thera M Plus) 1 tab DAILY PO Last administered on 08/22/21at 08:41; Start 08/21/21 at 09:00 Albuterol Sulfate (Ventolin Neb Soln) 2.5 mg PRN Q4HRS PRN INH resp distress; Start 08/20/21 at 21:30; Status Cancel Albuterol Sulfate (Ventolin Neb Soln) 2.5 mg RTQID NEB ; Start 08/21/21 at 08:00; Status Cancel Albuterol Sulfate (Ventolin Hfa) 2 puff RTQID INH Last administered on 08/22/21at 16:02; Start 08/21/21 at 08:00 Albuterol Sulfate (Ventolin Hfa) 2 puff PRN Q4HRS PRN INH SOA Last administered on 08/21/21at 06:26; Start 08/21/21 at 02:30 Sodium Chloride 1,000 ml @ 75 mls/hr [id number] IV Last administered on 08/22/21at 10:29; Start 08/21/21 at 10:15 Ceftriaxone Sodium (Rocephin) 1 gm Q24H IVP Last administered on 08/22/21at 10:58; Start 08/22/21 at 11:00 Azithromycin 500 mg/Sodium Chloride 250 ml @ 250 mls/hr Q24H IV Last administered on 08/22/21at 10:56; Start 08/22/21 at 11:00 Active Scripts Active Reported Centrum Silver Men Tablet (Multivit-Min/FA/Lycopen/Lutein) 1 Each Tablet 1 Each PO DAILY Aspirin 81 Mg Tab.chew 1 Tab PO DAILY Carbidopa-Levodopa 25-100 Tab (Carbidopa/Levodopa) 1 Each Tablet 1 Tab PO BID 30 Days Atorvastatin Calcium 20 Mg Tablet 1 Tab PO QHS Hydrochlorothiazide Capsule (Hydrochlorothiazide) 12.5 Mg Capsule 1 Cap PO DAILY Tamsulosin Hcl 0.4 Mg Cap.er.24h 1 Cap PO QHS Finasteride 5 Mg Tablet 1 Tab PO DAILY Duoneb 0.5-3(2.5) Mg/3 Ml (Albuterol/Ipratropium) 3 Ml Ampul.neb Advair 250-50 Diskus (Fluticasone/Salmeterol) 1 Each Disk.w.dev 1 Puff IH BID Proair Hfa Inhaler (Albuterol Sulfate) 8.5 Gm Hfa.aer.ad 2 Puff IH PRN Q4-6HRS Allergies Allergies: Coded Allergies: amoxicillin (Verified Allergy, Intermediate, 10/09/20) sulfacetamide (Verified Allergy, Intermediate, 10/09/20) prednisone (Verified Adverse Reaction, Intermediate, can'tsleep, 10/09/20) ROS General: YES: Fatigue, Malaise Gastrointestinal: Yes Nausea, Yes Vomiting, Yes Abdominal Pain Physical Exam General: mild distress HEENT: Atraumatic Lungs: Other (Minimally decreased breath sounds) Heart: Regular rate Abdomen: Normal bowel sounds Vitals VITALS Vital Signs Date Time Temp Pulse Resp B/P (MAP) Pulse Ox O2 Delivery O2 Flow Rate FiO2 08/22/21 15:00 99.0 53 18 135/53 (80) 92 99.0 08/22/21 07:45 Room Air Images Images CT scan as above. Assessment/Plan Assessment/Plan 1. Weakness, abdominal pain nausea and vomiting. Patient symptoms have improved overnight. CT scan as above with no acute GI etiology. Continuing present treatments and monitoring. 2. Episodes of bradycardia into the low 40s. Patient remains in a sinus rhythm during these episodes. No significantly abnormal lab. These episodes sometimes seem associated with his abdominal discomfort. He is on no beta-blockers or calcium channel blockers. With continue present treatment and monitor. 3. Shortness of breath. History of COPD. Patient being continued on his baseline medications. 4. Hypertension. Controlled overnight. 5. Hyperlipidemia. Will check morning lab. 6. Parkinson's. 7. PVD. SUSANNA CASAREZ MD Aug 22, 2021 17:43
[2021-08-22 19:00] VITALS: BP 135/50
--- NOTE | 2021-08-22 20:02 | PN ---
DATE: 08/22/2021 DAILY PROGRESS NOTE LOCATION: He is in room 538. SUBJECTIVE: This 80-year-old male admitted through the Emergency Room with profound weakness after several days of generalized abdominal discomfort, nausea, vomiting, diarrhea. He has had no nausea or vomiting in last 24 hours, but nursing reports several loose stools yesterday. There is no evidence of blood with the same. He, however, does feel much better than admission and is stronger and we will be curious to see how he progresses with therapy. OBJECTIVE: VITAL SIGNS: Stable. He did spike a temperature to 101.2 yesterday afternoon and 101.3 in the morning and I would have gotten blood cultures had I known about it. Because of the CT scanning chest showing some bronchial thickening, we will add Rocephin and Zithromax for respiratory infection, although I still feel this is probably more related to a viral gastroenteritis type of picture. CHEST: Clear, but diminished breath sounds. HEART: Regular rate and rhythm. ABDOMEN: Benign. EXTREMITIES: Without cyanosis, clubbing, edema. NEUROLOGIC: He is intact. ASSESSMENT: 1. Viral gastroenteritis with vomiting, diarrhea, profound weakness, inability to do self care. 2. Chronic obstructive pulmonary disease with exacerbation with bronchitis. 3. Bladder cancer. PLAN: Continue hydration. Diet as tolerated and antibiotics for the fever and possible pulmonary source by CT chest findings. We will discuss with who has to call in to me. MEIR/BLANCO DR: Alina TID: [id number]
[2021-08-22] MEDS: ATORVASTATIN CALCIUM 20 MG TABLET PO SCH (20:24)
[2021-08-22] MEDS: TAMSULOSIN 0.4 MG CAP.ER.24H. PO SCH (20:26)
[2021-08-22 23:00] VITALS: BP 120/41
[2021-08-23] MEDS: IV NORMAL SALINE 1000ML BAG 1,000 ML IV SCH (01:03)
[2021-08-23 03:00] VITALS: BP 118/52
[2021-08-23 07:00] VITALS: BP 145/66
[2021-08-23 07:06] LABS: BASO % 1 % (0-3); EOS % 0 % (0-3); HEMATOCRIT 37.3 % (39.0-53.0); HEMOGLOBIN 12.6 g/dL (13.0-17.5); LYMPH # 0.8 x10^3/uL (1.0-4.8); LYMPH % 16 % (24-48); MEAN CORPUSCULAR HEMOGLOBIN 31 pg (25-35); MEAN CORPUSCULAR HGB CONC 34 g/dL (31-37); MEAN CORPUSCULAR VOLUME 92 fL (79-100); MONO # 0.3 x10^3/uL (0.0-1.1); MONO % 7 % (0-9); NEUT # 3.6 x10^3/uL (1.8-7.7); NEUT % 76 % (31-73); PLATELET COUNT 157 x10^3/uL (140-400); RED BLOOD COUNT 4.04 x10^6/uL (4.30-5.70); RED CELL DISTRIBUTION WIDTH 13.4 % (11.5-14.5); WHITE BLOOD COUNT 4.8 x10^3/uL (4.0-11.0)
[2021-08-23] MEDS: IPRATRPIUM/ALBUTEROL 0.5/2.5MG 3 ML NEBU. NEB SCH ×4 (07:25→21:14)
[2021-08-23] MEDS: BUDESONIDE 0.5 MG/2 ML NEBU. NEB SCH ×2 (07:25→21:14)
[2021-08-23 07:27] LABS: CALCIUM 6.9 mg/dL (8.5-10.1); CREATININE 0.6 mg/dL (0.7-1.3); MAGNESIUM 1.9 mg/dL (1.8-2.4)
[2021-08-23 07:35] LABS: POTASSIUM 2.5 mmol/L (3.5-5.1)
[2021-08-23] MEDS ORDERED: POTASSIUM CHLORIDE 20 MEQ TABLET.ER. PO ONE (07:45)
[2021-08-23] MEDS: FINASTERIDE 5 MG TABLET. PO SCH (08:23)
[2021-08-23] MEDS: POTASSIUM CL 40MEQ IN 0.9%NACL 1,000 ML IV SCH ×2 (08:23→22:42)
[2021-08-23] MEDS: MULTIVITAMIN with MINERAL TABLET. PO SCH (08:23)
[2021-08-23] MEDS: CARBIDOPA/LEVODOPA 25/100MG TABLET PO SCH ×2 (08:23→20:37)
[2021-08-23] MEDS: ASPIRIN CHEWABLE 81 MG TABLET. PO SCH (08:23)
[2021-08-23] MEDS: hydroCHLOROthiazide 12.5 MG CAPSULE PO SCH (08:23)
--- NOTE | 2021-08-23 10:05 | EKG ---
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
[2021-08-23 11:00] VITALS: BP 138/63
[2021-08-23] MEDS: AZITHROMYCIN 500 MG in IV NORMAL SALINE 250ML 250 ML IV SCH (11:00)
[2021-08-23] MEDS: cefTRIAXone IV Push 1 GM VIAL. IVP SCH (12:00)
[2021-08-23 14:43] VITALS: BP 139/64
--- NOTE | 2021-08-23 17:51 | PDOC ---
PROGRESS NOTES Date of Service DATE: 08/23/21 TIME: 17:48 Subjective Subjective Patient seen and examined Objective Objective Vital Signs Date Time Temp Pulse Resp B/P (MAP) Pulse Ox O2 Delivery O2 Flow Rate FiO2 08/23/21 15:16 94 Room Air 08/23/21 14:43 97.9 57 18 139/64 (89) 97.9 Intake and Output 08/23/21 07:00 Intake Total 1320 ml Balance 1320 ml Intake Oral 320 ml IV Total 1000 ml # Voids 6 # Bowel Movements 11 Physical Exam Abdomen: Normal bowel sounds Heart: Regular rate General: mild distress Lungs: Clear to auscultation Assessment Assessment Problems Medical Problems: (1) Dehydration Status: Acute (2) Generalized weakness Status: Acute (3) History of bladder cancer Status: Acute (4) Nausea vomiting and diarrhea Status: Acute 1. Weakness, abdominal pain nausea and vomiting. Patient symptoms continue to slowly improve. CT scan as above with no acute GI etiology. Continuing present treatment and monitoring. 2. Episodes of bradycardia into the low 40s. Patient remains in a sinus rhythm during these episodes. No significantly abnormal lab initially. These episodes sometimes seem associated with his abdominal discomfort. He is on no beta- blockers or calcium channel blockers. With continue present treatment and monitor. Rhythm improved overnight. 3. Shortness of breath. History of COPD. Patient being continued on his baseline medications. 4. Hypertension. Controlled overnight. 5. Hyperlipidemia. Will check morning lab. 6. Parkinson's. 7. PVD 8. Hypokalemia. Potassium level 2.5. Being replaced and monitored. Comment Review of Relevant I have reviewed the following items estrellita (where applicable) has been applied. Labs Laboratory Tests Test 08/23/21 03:40 08/23/21 06:10 Clostridium difficile Toxin (PCR) Negative (NEGATIVE) White Blood Count 4.8 x10^3/uL (4.0-11.0) Red Blood Count 4.04 x10^6/uL (4.30-5.70) Hemoglobin 12.6 g/dL (13.0-17.5) Hematocrit 37.3 % (39.0-53.0) Mean Corpuscular Volume 92 fL (79-100) Mean Corpuscular Hemoglobin 31 pg (25-35) Mean Corpuscular Hemoglobin Concent 34 g/dL (31-37) Red Cell Distribution Width 13.4 % (11.5-14.5) Platelet Count 157 x10^3/uL (140-400) Neutrophils (%) (Auto) 76 % (31-73) Lymphocytes (%) (Auto) 16 % (24-48) Monocytes (%) (Auto) 7 % (0-9) Eosinophils (%) (Auto) 0 % (0-3) Basophils (%) (Auto) 1 % (0-3) Neutrophils # (Auto) 3.6 x10^3/uL (1.8-7.7) Lymphocytes # (Auto) 0.8 x10^3/uL (1.0-4.8) Monocytes # (Auto) 0.3 x10^3/uL (0.0-1.1) Eosinophils # (Auto) 0.0 x10^3/uL (0.0-0.7) Basophils # (Auto) 0.0 x10^3/uL (0.0-0.2) Sodium Level 138 mmol/L (136-145) Potassium Level 2.5 mmol/L (3.5-5.1) Chloride Level 102 mmol/L (98-107) Carbon Dioxide Level 25 mmol/L (21-32) Anion Gap 11 (6-14) Blood Urea Nitrogen 14 mg/dL (8-26) Creatinine 0.6 mg/dL (0.7-1.3) Estimated GFR (Cockcroft-Gault) 130.0 Glucose Level 78 mg/dL (70-99) Calcium Level 6.9 mg/dL (8.5-10.1) Magnesium Level 1.9 mg/dL (1.8-2.4) Laboratory Tests Test 08/23/21 03:40 08/23/21 06:10 Clostridium difficile Toxin (PCR) Negative (NEGATIVE) White Blood Count 4.8 x10^3/uL (4.0-11.0) Red Blood Count 4.04 x10^6/uL (4.30-5.70) Hemoglobin 12.6 g/dL (13.0-17.5) Hematocrit 37.3 % (39.0-53.0) Mean Corpuscular Volume 92 fL (79-100) Mean Corpuscular Hemoglobin 31 pg (25-35) Mean Corpuscular Hemoglobin Concent 34 g/dL (31-37) Red Cell Distribution Width 13.4 % (11.5-14.5) Platelet Count 157 x10^3/uL (140-400) Neutrophils (%) (Auto) 76 % (31-73) Lymphocytes (%) (Auto) 16 % (24-48) Monocytes (%) (Auto) 7 % (0-9) Eosinophils (%) (Auto) 0 % (0-3) Basophils (%) (Auto) 1 % (0-3) Neutrophils # (Auto) 3.6 x10^3/uL (1.8-7.7) Lymphocytes # (Auto) 0.8 x10^3/uL (1.0-4.8) Monocytes # (Auto) 0.3 x10^3/uL (0.0-1.1) Eosinophils # (Auto) 0.0 x10^3/uL (0.0-0.7) Basophils # (Auto) 0.0 x10^3/uL (0.0-0.2) Sodium Level 138 mmol/L (136-145) Potassium Level 2.5 mmol/L (3.5-5.1) Chloride Level 102 mmol/L (98-107) Carbon Dioxide Level 25 mmol/L (21-32) Anion Gap 11 (6-14) Blood Urea Nitrogen 14 mg/dL (8-26) Creatinine 0.6 mg/dL (0.7-1.3) Estimated GFR (Cockcroft-Gault) 130.0 Glucose Level 78 mg/dL (70-99) Calcium Level 6.9 mg/dL (8.5-10.1) Magnesium Level 1.9 mg/dL (1.8-2.4) Microbiology 08/20/21 Blood Culture - Preliminary, Resulted NO GROWTH AFTER 3 DAYS Medications Current Medications Sodium Chloride 1,000 ml @ 1,000 mls/hr 1X ONCE IV Last administered on 08/20/21at 14:41; Start 08/20/21 at 14:15; Stop 08/20/21 at 15:14; Status DC Ondansetron HCl (Zofran) 4 mg 1X ONCE IVP Last administered on 08/20/21at 14:41; Start 08/20/21 at 14:15; Stop 08/20/21 at 14:21; Status DC Fentanyl Citrate (Fentanyl 2ml Vial) 50 mcg 1X ONCE IVP Last administered on 08/20/21at 14:41; Start 08/20/21 at 14:15; Stop 08/20/21 at 14:21; Status DC Iohexol (Omnipaque 300 Mg/ml) 75 ml 1X ONCE IV ; Start 08/20/21 at 17:15; Stop 08/20/21 at 17:16; Status DC Info (CONTRAST GIVEN -- Rx MONITORING) 1 each PRN DAILY PRN MC SEE COMMENTS; Start 08/20/21 at 17:15; Stop 08/22/21 at 17:14; Status DC Ondansetron HCl (Zofran) 4 mg PRN Q8HRS PRN IVP NAUSEA/VOMITING Last administered on 08/21/21at 06:12; Start 08/20/21 at 19:00; Stop 08/21/21 at 18:59; Status DC Sodium Chloride 1,000 ml @ 100 mls/hr 1X ONCE IV Last administered on 08/20/21at 19:27; Start 08/20/21 at 19:00; Stop 08/21/21 at 04:59; Status DC Acetaminophen (Tylenol) 650 mg PRN Q4HRS PRN PO pain or fever Last administered on 08/22/21at 20:25; Start 08/20/21 at 19:00 Aspirin (Aspirin Chewable) 81 mg DAILY08 PO Last administered on 08/23/21at 08:23; Start 08/21/21 at 08:00 Atorvastatin Calcium (Lipitor) 20 mg QHS PO Last administered on 08/22/21at 20:24; Start 08/20/21 at 22:00 Carbidopa/Levodopa (Sinemet 25/100) 1 tab BID PO Last administered on 08/23/21at 08:23; Start 08/20/21 at 22:00 Finasteride (Proscar) 5 mg DAILY PO Last administered on 08/23/21 08:23; Start 08/21/21 at 09:00 Hydrochlorothiazide (Microzide) 12.5 mg DAILY PO Last administered on 08/23/21at 08:23; Start 08/21/21 at 09:00 Albuterol/ Ipratropium (Duoneb) 3 ml Q4HRS PRN INH Resp distress; Start 08/20/21 at 21:30; Status UNV Tamsulosin HCl (Flomax) 0.4 mg QHS PO Last administered on 08/22/21at 20:26; Start 08/20/21 at 22:00 Budesonide (Pulmicort) 0.5 mg RTBID NEB Last administered on 08/23/21at 07:25; Start 08/21/21 at 08:00 Multivitamins (Thera M Plus) 1 tab DAILY PO Last administered on 08/23/21at 08:23; Start 08/21/21 at 09:00 Albuterol Sulfate (Ventolin Neb Soln) 2.5 mg PRN Q4HRS PRN INH resp distress; Start 08/20/21 at 21:30; Status Cancel Albuterol Sulfate (Ventolin Neb Soln) 2.5 mg RTQID NEB ; Start 08/21/21 at 08:00; Status Cancel Albuterol Sulfate (Ventolin Hfa) 2 puff RTQID INH Last administered on 08/22/21at 19:49; Start 08/21/21 at 08:00; Stop 08/23/21 at 04:49; Status DC Albuterol Sulfate (Ventolin Hfa) 2 puff PRN Q4HRS PRN INH SOA Last administered on 08/21/21at 06:26; Start 08/21/21 at 02:30 Sodium Chloride 1,000 ml @ 75 mls/hr [id number] IV Last administered on 08/23/21at 01:03; Start 08/21/21 at 10:15; Stop 08/23/21 at 14:15; Status DC Ceftriaxone Sodium (Rocephin) 1 gm Q24H IVP Last administered on 08/23/21at 12:00; Start 08/22/21 at 11:00 Azithromycin 500 mg/Sodium Chloride 250 ml @ 250 mls/hr Q24H IV Last administered on 08/23/21at 11:00; Start 08/22/21 at 11:00 Albuterol/ Ipratropium (Duoneb) 3 ml RTQID NEB Last administered on 08/23/21at 15:14; Start 08/23/21 at 08:00 Potassium Chloride (Klor-Con) 40 meq 1X ONCE PO Last administered on 08/23/21at 08:22; Start 08/23/21 at 07:45; Stop 08/23/21 at 07:49; Status DC Potassium Chloride/Sodium Chloride 1,000 ml @ 75 mls/hr [id number] IV Last administered on 08/23/21at 08:23; Start 08/23/21 at 07:45 Lactobacillus Rhamnosus (Culturelle) 1 cap BID PO ; Start 08/23/21 at 21:00 Active Scripts Active Reported Centrum Silver Men Tablet (Multivit-Min/FA/Lycopen/Lutein) 1 Each Tablet 1 Each PO DAILY Aspirin 81 Mg Tab.chew 1 Tab PO DAILY Carbidopa-Levodopa 25-100 Tab (Carbidopa/Levodopa) 1 Each Tablet 1 Tab PO BID 30 Days Atorvastatin Calcium 20 Mg Tablet 1 Tab PO QHS Hydrochlorothiazide Capsule (Hydrochlorothiazide) 12.5 Mg Capsule 1 Cap PO DAILY Tamsulosin Hcl 0.4 Mg Cap.er.24h 1 Cap PO QHS Finasteride 5 Mg Tablet 1 Tab PO DAILY Duoneb 0.5-3(2.5) Mg/3 Ml (Albuterol/Ipratropium) 3 Ml Ampul.neb Advair 250-50 Diskus (Fluticasone/Salmeterol) 1 Each Disk.w.dev 1 Puff IH BID Proair Hfa Inhaler (Albuterol Sulfate) 8.5 Gm Hfa.aer.ad 2 Puff IH PRN Q4-6HRS Vitals/I & O Vital Sign - Last 24 Hours 08/22/21 08/22/21 08/22/21 08/22/21 19:00 19:45 20:23 23:00 Temp 101.2 98.6 101.2 98.6 Pulse 55 51 Resp 24 22 B/P (MAP) 135/50 (78) 120/41 (67) Pulse Ox 94 92 95 O2 Delivery Room Air Room Air Room Air Room Air 08/23/21 08/23/21 08/23/21 08/23/21 03:00 07:00 07:25 08:00 Temp 98.5 98.6 98.5 98.6 Pulse 50 54 Resp 22 24 B/P (MAP) 118/52 (74) 145/66 (92) Pulse Ox 94 95 95 O2 Delivery Room Air Room Air Room Air Room Air 08/23/21 08/23/21 08/23/21 08/23/21 11:00 12:08 14:43 15:16 Temp 98.2 97.9 98.2 97.9 Pulse 60 57 Resp 17 18 B/P (MAP) 138/63 (88) 139/64 (89) Pulse Ox 93 95 93 94 O2 Delivery Room Air Room Air Room Air Room Air Intake and Output 08/22/21 08/22/21 08/23/21 15:00 23:00 07:00 Intake Total 220 ml 100 ml 1000 ml Balance 220 ml 100 ml 1000 ml Justifications for Admission Other Justification SUSANNA CASAREZ MD Aug 23, 2021 17:51
[2021-08-23 19:00] VITALS: BP 144/64
[2021-08-23 19:22] LABS: CALCIUM 7.1 mg/dL (8.5-10.1); CREATININE 0.6 mg/dL (0.7-1.3)
[2021-08-23 19:24] LABS: POTASSIUM 2.9 mmol/L (3.5-5.1)
--- NOTE | 2021-08-23 20:06 | PN ---
DATE: 08/23/2021 LOCATION: He is in room 538. SUBJECTIVE: This 80-year-old male admitted through the Emergency Room with profound weakness after several days of generalized abdominal discomfort, nausea, vomiting, diarrhea. He has had no nausea or vomiting in the last 48 hours and stools have slowed way down. He feels much better than he did and is planning on working hard in therapy, but will go to [facility], I have recommended from stamina and strength standpoint. OBJECTIVE: VITAL SIGNS: Stable. He is afebrile. GENERAL: He is awake and alert. CHEST: Reveals decreased breath sounds, but clear. HEART: Regular rate and rhythm. ABDOMEN: Benign. EXTREMITIES: Without cyanosis, clubbing or edema. NEUROLOGIC: He is intact. LABORATORY DATA: White count has decreased to normal. Potassium is being replaced and was 2.5 this morning. Creatinine has decreased to 0.6. Blood cultures are negative at 3 days. IMPRESSION: 1. Viral gastroenteritis with vomiting, diarrhea, profound weakness, inability to self-care. 2. Chronic obstructive pulmonary disease with exacerbation with bronchitis. 3. Bladder cancer. 4. Hypokalemia. PLAN: Potassium replacement. We will ask social media marketing manager for skilled evaluation. CRISSY DR: Alina TID: [id number]
[2021-08-23] MEDS: LACTOBACILLUS RHAMNOSUS GG 1 CAPSULE. PO SCH (20:37)
[2021-08-23] MEDS: TAMSULOSIN 0.4 MG CAP.ER.24H. PO SCH (20:38)
[2021-08-23] MEDS: ATORVASTATIN CALCIUM 20 MG TABLET PO SCH (20:38)
[2021-08-23 23:00] VITALS: BP 132/59
[2021-08-24 03:00] VITALS: BP 148/72
[2021-08-24 05:34] LABS: CALCIUM 7.1 mg/dL (8.5-10.1); CREATININE 0.5 mg/dL (0.7-1.3); GFR 160.4; POTASSIUM 3.2 mmol/L (3.5-5.1)
[2021-08-24 07:00] VITALS: BP 155/73
[2021-08-24] MEDS: BUDESONIDE 0.5 MG/2 ML NEBU. NEB SCH ×2 (07:25→20:42)
[2021-08-24] MEDS: IPRATRPIUM/ALBUTEROL 0.5/2.5MG 3 ML NEBU. NEB SCH ×4 (07:25→20:42)
[2021-08-24] MEDS: MULTIVITAMIN with MINERAL TABLET. PO SCH (08:25)
[2021-08-24] MEDS: CARBIDOPA/LEVODOPA 25/100MG TABLET PO SCH ×2 (08:25→20:36)
[2021-08-24] MEDS: ASPIRIN CHEWABLE 81 MG TABLET. PO SCH (08:25)
[2021-08-24] MEDS: LACTOBACILLUS RHAMNOSUS GG 1 CAPSULE. PO SCH ×2 (08:26→20:36)
[2021-08-24] MEDS: FINASTERIDE 5 MG TABLET. PO SCH (08:26)
[2021-08-24] MEDS: hydroCHLOROthiazide 12.5 MG CAPSULE PO SCH (08:26)
[2021-08-24 11:00] VITALS: BP 141/61
[2021-08-24] MEDS: AZITHROMYCIN 500 MG in IV NORMAL SALINE 250ML 250 ML IV SCH (11:23)
[2021-08-24] MEDS: cefTRIAXone IV Push 1 GM VIAL. IVP SCH (11:23)
[2021-08-24] MEDS: POTASSIUM CL 40MEQ IN 0.9%NACL 1,000 ML IV SCH (11:24)
--- NOTE | 2021-08-24 11:49 | PDOC ---
JASSON MARTE AIR TRAFFIC COORDINATOR 08/24/21 1149: CARDIO Progress Notes Date and Time Date of Service 08/24/2021 Time of Evaluation 1130 Subjective Subjective: No Chest Pain, No shortness of breath, No Palpitations Vitals Vitals Vital Signs Date Time Temp Pulse Resp B/P (MAP) Pulse Ox O2 Delivery O2 Flow Rate FiO2 08/24/21 11:35 92 Room Air 08/24/21 07:00 98.2 75 17 155/73 (100) 98.2 Weight Weight [ ] Input and Output Intake and Output Intake and Output 08/24/21 07:00 Intake Total 2090 ml Balance 2090 ml Intake Oral 840 ml IV Total 1250 ml # Voids 5 # Bowel Movements 2 Laboratory Labs Laboratory Tests Test 08/23/21 19:00 08/24/21 05:00 Sodium Level 134 mmol/L (136-145) 140 mmol/L (136-145) Potassium Level 2.9 mmol/L (3.5-5.1) 3.2 mmol/L (3.5-5.1) Chloride Level 99 mmol/L (98-107) 103 mmol/L (98-107) Carbon Dioxide Level 27 mmol/L (21-32) 27 mmol/L (21-32) Anion Gap 8 (6-14) 10 (6-14) Blood Urea Nitrogen 10 mg/dL (8-26) 9 mg/dL (8-26) Creatinine 0.6 mg/dL (0.7-1.3) 0.5 mg/dL (0.7-1.3) Estimated GFR (Cockcroft-Gault) 130.0 160.4 Glucose Level 109 mg/dL (70-99) 96 mg/dL (70-99) Calcium Level 7.1 mg/dL (8.5-10.1) 7.1 mg/dL (8.5-10.1) Microbiology Micro Microbiology 08/20/21 Blood Culture - Preliminary, Resulted NO GROWTH AFTER 3 DAYS Physical Exam HEENT: Neck Supple W Full Motion Chest: Symmetric LUNGS: Other (basilar crackles) Heart: S1S2, RRR (SR) Abdomen: Soft N/T Assessment Assessment 1. Abdominal pain with n/v: per PCP 2. Weakness . 3. Bradyarrhythmia: no s/s. Noted with junctional episodes and WAP lowest in the low 40s, no pauses 4. AECOPD 5. HTN: mildly elevated 6. HLP 7. Hx of parkinsons. 8. Hx of PAD 9. Hypokalemia: replaced, improved 10. Fever Recommendations 1. K replacement. 2. Stop HCTZ and start on low dose norvasc. If hypokalemia continues to be an issue then consider transitioning to ACEi 3. MCOT 4. TTE and TSH Justicifation of Admission Dx: Justifications for Admission: Justification of Admission Dx: N/A SUSANNA CASAREZ MD 08/24/21 1647: CARDIO Progress Notes Assessment Assessment Patient seen and examined. I agree with our nurse practitioners assessment and plan. Abdominal pain with n/v: Improved. Per PCP Bradyarrhythmia: no s/s. Noted with junctional episodes and WAP lowest in the low 40s, no pauses. Replacing potassium. Outpatient monitoring. AECOPD. Improving. HTN: mildly elevated. Norvasc as above. HLP Hx of Parkinsons. Hx of PAD Hypokalemia: replaced, improved JASSON MARTE APRN Aug 24, 2021 11:49 SUSANNA CASAREZ MD Aug 24, 2021 16:47
--- NOTE | 2021-08-24 14:30 | NUR ---
SW following. Discussed with RN, pt from home with , room air, cardiac diet, COVID-19 negative. Therapy recommending SNF. JULIAN met with pt, pt agreeable to SNF and would like to go to [facility]. Referral sent to [facility], awaiting acceptance decision. Pt had one dose of Pfizer vaccine. JULIAN will continue to follow. Addendum: 08/24/21 at 1516 by ANASTASIA JORDAN Pt accepted at [facility] for SNF. JULIAN requested repeat COVID swab for placement. RN notified. JULIAN will continue to follow.
[2021-08-24 15:00] VITALS: BP 147/116
--- NOTE | 2021-08-24 17:51 | CARD ---
MR#: [id number] Date of Study: 08/24/2021 Ordering Physician: JASSON MARTE, Referring Physician: JASSON MARTE Tech: Baldemar Haro [facility] APPROVED REPORT EXAM: Two-dimensional and M-mode echocardiogram with Doppler and color Doppler. Other Information Quality : AverageHR: 55bpm Rhythm : Bradycardia INDICATION COPD Hypertension/HCVD Peripheral vasciluar disease RISK FACTORS Hypertension Hyperlipidemia 2D DIMENSIONS Left Atrium(2D)4.7 (1.6-4.0cm)IVSd0.9 (0.7-1.1cm) Aortic Root(2D)3.1 (2.0-3.7cm)LVDd4.3 (3.9-5.9cm) PWd1.0 (0.7-1.1cm)LVDs2.4 (2.5-4.0cm) FS (%) 44.6 %SV62.3 ml Aortic Valve AoV Peak Dayne.117.3cm/sAoV VTI28.6cm AO Peak GR.5.5mmHgLVOT VTI 24.43cm AO Mean GR.3mmHg Mitral Valve MV E Iezfanbp063.7cm/sMV E Peak Gr.4mmHg MV DECEL [id number] A Baiqurzp33.5cm/s MV E Mean Gr.1mmHgE/A Ratio1.3 TDI Lateral E' P. V7.92cm/sMedial E' P. V6.63cm/s E/Lateral E'14.6E/Medial E'17.5 Tricuspid Valve TR P. Ixqjhndz204st/sTR Peak Gr.32mmHg Pulmonary Vein S1 Zzfpjyoa93.3cm/sS2 Dqsoptrl21.87cm/s D2 Gxfgbgyj53.9cm/s LEFT VENTRICLE The left ventricle is normal size. There is normal left ventricular wall thickness. The left ventricu lar systolic function is normal and the ejection fraction is within normal range. LV ejection fractio n of 55-60%. There is normal LV segmental wall motion. Transmitral Doppler flow pattern is Grade II-p seudonormal filling dynamics. No left ventricle thrombus noted on this study. There is no ventricular septal defect visualized. There is no left ventricular aneurysm. There is no mass noted in the left ventricle. RIGHT VENTRICLE The right ventricle is mildly dilated. There is normal right ventricular wall thickness. The right ve ntricular systolic function is normal. ATRIA The left atrium is mild to moderately dilated. The right atrium is mildly dilated. The interatrial se ptum is intact with no evidence for an atrial septal defect or patent foramen ovale as noted on 2-D o r Doppler imaging. AORTIC VALVE The aortic valve is calcified but opens well. Doppler and Color Flow revealed trace aortic regurgitat ion. There is no significant aortic valvular stenosis. There is no aortic valvular vegetation. MITRAL VALVE The mitral valve is thickened but opens well. There is no evidence of mitral valve prolapse. There is no mitral valve stenosis. Doppler and Color-flow revealed trace mitral regurgitation. TRICUSPID VALVE The tricuspid valve is normal in structure and function. Doppler and Color Flow revealed mild tricusp id regurgitation. The PA pressure was estimated at 40 mmHg. There is no tricuspid valve prolapse or v egetation. There is no tricuspid valve stenosis. PULMONIC VALVE The pulmonary valve is normal in structure and function. Doppler and Color Flow revealed no pulmonic valvular regurgitation. There is no pulmonic valvular stenosis. GREAT VESSELS The aortic root is normal in size. The ascending aorta is normal in size. The pulmonary artery is nor mal. Subcostal views were difficut so the IVC was not well visualized. PERICARDIAL EFFUSION There is no pleural effusion. There is no evidence of significant pericardial effusion. Critical Notification Critical Value: No <Conclusion> The left ventricle is normal size. The left ventricular systolic function is normal and the ejection fraction is within normal range. LV ejection fraction of 55-60%. There is normal left ventricular wall thickness. Doppler and Color Flow revealed trace aortic regurgitation. There is no significant aortic valvular stenosis. Doppler and Color-flow revealed trace mitral regurgitation. Doppler and Color Flow revealed mild tricuspid regurgitation. The PA pressure was estimated at 40 mmHg. Signed by : Remi Morris MD Electronically Approved : 08/24/2021 17:51:19
[2021-08-24 19:00] VITALS: BP 134/70
--- NOTE | 2021-08-24 19:51 | PN ---
DATE: 08/24/2021 LOCATION: He is in room 538. SUBJECTIVE: This 80-year-old male admitted through the Emergency Room with profound weakness after several days of generalized abdominal discomfort, nausea, vomiting, diarrhea. He has had no vomiting for the last couple 3 days and stools have slowed down. He is feeling better on a daily basis, getting more strength, working hard on therapy and has agreed to correction, which is what they are recommending prior to going home. I did speak on the phone with his , who needs him stronger prior to coming home as she states I am not a young thing anymore. OBJECTIVE: VITAL SIGNS: Stable. He is afebrile. GENERAL: He is awake and alert. CHEST: Decreased breath sounds, but clear. HEART: Regular rate and rhythm. ABDOMEN: Benign. EXTREMITIES: Without cyanosis, clubbing, edema. NEUROLOGIC: He is intact. LABORATORY DATA: Potassium is up to 3.2 this morning with replacement and this is ongoing. Cardiology have changed his blood pressure medicines around a little bit. Blood cultures remain negative from admission. IMPRESSION: 1. Viral gastroenteritis with vomiting, diarrhea, profound weakness, inability to do self care. 2. Chronic obstructive pulmonary disease with exacerbation with bronchitis. 3. Hypokalemia, being replaced. 4. Bladder cancer. PLAN: Continue potassium replacement. group home eval ____ [facility], which his choice and can discharge once approved. VASU DR: Alina TID: [id number]
[2021-08-24] MEDS: TAMSULOSIN 0.4 MG CAP.ER.24H. PO SCH (20:36)
[2021-08-24] MEDS: ATORVASTATIN CALCIUM 20 MG TABLET PO SCH (20:36)
[2021-08-24 22:53] VITALS: BP 144/57
[2021-08-25] MEDS: POTASSIUM CL 40MEQ IN 0.9%NACL 1,000 ML IV SCH (00:21)
[2021-08-25 02:43] VITALS: BP 146/64
[2021-08-25 07:00] VITALS: BP 143/101
[2021-08-25] MEDS: FINASTERIDE 5 MG TABLET. PO SCH (07:56)
[2021-08-25] MEDS: CARBIDOPA/LEVODOPA 25/100MG TABLET PO SCH (07:56)
[2021-08-25] MEDS: ASPIRIN CHEWABLE 81 MG TABLET. PO SCH (07:56)
[2021-08-25] MEDS: LACTOBACILLUS RHAMNOSUS GG 1 CAPSULE. PO SCH (07:56)
[2021-08-25] MEDS: MULTIVITAMIN with MINERAL TABLET. PO SCH (07:56)
[2021-08-25] MEDS: ALBUTEROL SULFATE 8GM INHALER. INH PRN (07:57)
[2021-08-25] MEDS ORDERED: AMLO-186 PO (08:13)
--- NOTE | 2021-08-25 08:14 | SNU/HH DC ---
DISCHARGE ORDERS DISCHARGE INFORMATION: DISCHARGE DATE: Aug 25, 2021 FINAL DIAGNOSIS Problems Medical Problems: (1) Dehydration Status: Acute (2) Generalized weakness Status: Acute (3) History of bladder cancer Status: Acute (4) Nausea vomiting and diarrhea Status: Acute CONDITION ON DISCHARGE: Stable CODE STATUS: Code Status: Full DETENTION: SNF STAY <30 DAYS: Yes HOSPICE: HOSPICE: No HOSPICE EVAL & TREAT: No POST DISCHARGE ORDERS: ACTIVITY ORDERS: Resume previous activity, Activity as tolerated WEIGHT BEARING STATUS: Full weight bearing, As tolerated BATHING ORDERS: No Tub Bath until see Dr. BARBOUR AFTER DISCHARGE: Regular WOUND/INCISION CARE: Reinforce dressing PRN, No wound care needed, Other, see below CHECKS AFTER DISCHARGE: CHECKS AFTER DISCHARGE: Check blood press - daily, Check your Temp as needed TREATMENT/EQUIPMENT ORDERS: ADAPTIVE EQUIPMENT NEEDED: None Physical Therapy For: Evalulation/Treatment Occupational Therapy For: Evaluation/Treatment DISCHARGE MEDICATIONS: Home Meds Active Scripts Amlodipine Besylate (AMLODIPINE BESYLATE) 5 Mg Tablet, 5 MG PO DAILY for hypertension for 30 Days, #30 TAB Prov:JEAN CARLOS CHERY MD 08/25/21 Reported Medications Multivit-Min/FA/Lycopen/Lutein (Centrum Silver Men Tablet) 1 Each Tablet, 1 EACH PO DAILY for supplement, TAB 09/29/20 Aspirin (ASPIRIN) 81 Mg Tab.chew, 1 TAB PO DAILY for heart health, #30 TAB 3 Refills 09/29/20 Carbidopa/Levodopa (CARBIDOPA-LEVODOPA 25-100 TAB) 1 Each Tablet, 1 TAB PO BID for Parkinsons Disease for 30 Days, #60 TAB 0 Refills 09/29/20 Atorvastatin Calcium (ATORVASTATIN CALCIUM) 20 Mg Tablet, 1 TAB PO QHS, #30 TAB 5 Refills 11/16/17 Tamsulosin Hcl (TAMSULOSIN HCL) 0.4 Mg Cap.er.24h, 1 CAP PO QHS, #30 CAP 5 Refills 11/16/17 Finasteride (FINASTERIDE) 5 Mg Tablet, 1 TAB PO DAILY, #30 TAB 11 Refills 11/16/17 Ipratropium/Albuterol Sulfate (DUONEB 0.5-3(2.5) MG/3 ML) 3 Ml Ampul.neb, #810 09/12/14 Fluticasone/Salmeterol (ADVAIR 250-50 DISKUS) 1 Each Disk.w.dev, 1 PUFF IH BID, #3 INHALER 3 Refills 07/22/14 Albuterol Sulfate (PROAIR HFA INHALER) 8.5 Gm Hfa.aer.ad, 2 PUFF IH PRN Q4-6HRS, #1 INHALER 07/22/14 Discontinued Reported Medications Hydrochlorothiazide (HYDROCHLOROTHIAZIDE CAPSULE ) 12.5 Mg Capsule, 1 CAP PO DAILY, #30 CAP 5 Refills 11/16/17 JEAN CARLOS CHERY MD Aug 25, 2021 08:14
[2021-08-25 08:18] LABS: CALCIUM 7.2 mg/dL (8.5-10.1); CREATININE 0.6 mg/dL (0.7-1.3); POTASSIUM 3.6 mmol/L (3.5-5.1)
[2021-08-25] MEDS: IPRATRPIUM/ALBUTEROL 0.5/2.5MG 3 ML NEBU. NEB SCH (08:37)
[2021-08-25] MEDS: BUDESONIDE 0.5 MG/2 ML NEBU. NEB SCH (08:37)
--- NOTE | 2021-08-25 09:30 | PDOC ---
CARDIO Progress Notes Date and Time Date of Service 08/25/2021 Time of Evaluation 0920 Subjective Subjective: No Chest Pain, No shortness of breath, No Palpitations Vitals Vitals Vital Signs Date Time Temp Pulse Resp B/P (MAP) Pulse Ox O2 Delivery O2 Flow Rate FiO2 08/25/21 08:37 94 Room Air 08/25/21 07:56 58 146/64 08/25/21 07:00 97.8 17 97.8 Weight Weight [ ] Input and Output Intake and Output Intake and Output 08/25/21 07:00 Intake Total 1000 ml Output Total 400 ml Balance 600 ml IV Total 1000 ml Output Urine Total 400 ml # Voids 1 # Bowel Movements 2 Laboratory Labs Laboratory Tests Test 08/24/21 19:27 08/25/21 06:40 Coronavirus (COVID-19)(PCR) Not detected (NOT DETECTD) Sodium Level 137 mmol/L (136-145) Potassium Level 3.6 mmol/L (3.5-5.1) Chloride Level 100 mmol/L (98-107) Carbon Dioxide Level 27 mmol/L (21-32) Anion Gap 10 (6-14) Blood Urea Nitrogen 8 mg/dL (8-26) Creatinine 0.6 mg/dL (0.7-1.3) Estimated GFR (Cockcroft-Gault) 130.0 Glucose Level 82 mg/dL (70-99) Calcium Level 7.2 mg/dL (8.5-10.1) Microbiology Micro Microbiology 08/20/21 Blood Culture - Preliminary, Resulted NO GROWTH AFTER 4 DAYS Physical Exam HEENT: Neck Supple W Full Motion Chest: Symmetric LUNGS: Other (basilar crackles) Heart: S1S2, RRR (SR) Abdomen: Soft N/T Extremities: No Edema Neurology: alert, oriented, follow commands Assessment Assessment 1. Abdominal pain with n/v: per PCP 2. Weakness . 3. Bradyarrhythmia: no s/s. Noted with junctional episodes and WAP lowest in the low 40s, no pauses 4. AECOPD 5. HTN: better. EF and WM nml per TTE 6. HLP 7. Hx of parkinsons. 8. Hx of PAD 9. Hypokalemia: resolved 10. Fever Recommendations 1. K replacement. 2. Stop HCTZ and continue norvasc, titrate up per BP trend 3. MCOT 4. Follow up in office as scheduled Justicifation of Admission Dx: Justifications for Admission: Justification of Admission Dx: N/A JASSON MARTE APRN Aug 25, 2021 09:30
[2021-08-25] MEDS: AZITHROMYCIN 500 MG in IV NORMAL SALINE 250ML 250 ML IV SCH (10:46)
[2021-08-25] MEDS: cefTRIAXone IV Push 1 GM VIAL. IVP SCH (10:47)
[2021-08-25 11:00] VITALS: BP 126/64
--- NOTE | 2021-08-25 11:23 | NUR ---
SW following. Discussed with RN, discharge orders faxed to [facility]. [facility] transport arranged for 1200. RN, [facility] and pt's notified. SW will continue to follow.
--- NOTE | 2021-08-25 12:15 | NUR ---
Discharge Note: JAYLON RODRIGUEZ [place] Discharge instructions and discharge home medications reviewed with Other facility and a copy given. All questions have been answered and understanding verbalized. The following instructions and handouts were given: copy of chart, discharge instructions. Discontinued lines and drains: Peripheral IV discontinued intact. [facility] with [facility] Personnel via Wheelchair
--- NOTE | 2021-08-25 20:47 | DS ---
DATE OF DISCHARGE: 08/25/2021 PRIMARY DIAGNOSES: 1. Viral gastroenteritis with nausea, vomiting, diarrhea. 2. Profound weakness with inability to do self-care. 3. Chronic obstructive pulmonary disease with exacerbation with bronchitis. 4. Hypokalemia, replaced. 5. Bladder cancer. CHIEF COMPLAINT AND HISTORY OF PRESENT ILLNESS: This is a 80-year-old male admitted through the Emergency Room with profound weakness, several days of generalized abdominal discomfort, nausea, vomiting, diarrhea. SUMMARY OF STAY: The patient was admitted, hydrated, given antiemetics. The vomiting stopped relatively quickly. He begin taking p.o. Diarrhea was almost gone by the time of discharge, he was getting stronger, but deemed by Therapy to still be too weak to do self care and after speaking with his on the phone, it was elected to send him to halfway. DISPOSITION: The patient is discharged to halfway. Please see orders there regarding diet, medication, activity, etc. We will continue to follow him there. WILFRIDO DR: Alina TID: [id number]
== END 2021-08-25 12:15 | DRG 392 ==
LOC: ER 13:31 → 5 NORTH 17:58 → OBSVTOIN 08-21 21:45
PROVIDERS: ADMIT Family Medicine; ATTEND Family Medicine
DX: A08.4 Viral intestinal infection, unspecified (principal); J44.1 Chronic obstructive pulmonary disease with (acute) exacerbation; C67.9 Malignant neoplasm of bladder, unspecified; E78.5 Hyperlipidemia, unspecified; E86.0 Dehydration; E87.6 Hypokalemia; G20 Parkinson's disease; I10 Essential (primary) hypertension; I49.8 Other specified cardiac arrhythmias; I73.9 Peripheral vascular disease, unspecified; N40.1 Benign prostatic hyperplasia with lower urinary tract symptoms; Z85.51 Personal history of malignant neoplasm of bladder; Z87.891 Personal history of nicotine dependence; Z88.1 Allergy status to other antibiotic agents; Z88.8 Allergy status to other drugs, medicaments and biological substances
CPT/HCPCS: 36415; 71045; 71260; 74177; 80048; 80053; 81001; 82550; 83605; 83690; 83735; 84443; 84484; 85007; 85025; 87040; 87428; 87493; 93005; 93306; 94640; 94760; 96361; 96374; 96375; G0378; G0379; J0456; J0696; J2405; J3010; J3480; J7030; J7050; U0003; U0005; 97110-GP; 97530-GP; 97535-GO; 99285-25; C8929; J7626